=== PATIENT | female | born 1935 | race Caucasian/White ===

== ENCOUNTER 2018-01-27 15:32 | Inpatient (IN) | payer OTHER, MEDICARE ==
[~2018-01-27] VITALS: Ht 160 cm; Wt 62.2 kg
[~2018-01-27 15:32] MED LIST: ECOT81TA2
[2018-01-27 15:50] VITALS: BP 169/72; PULSE 74; RESP 16; TEMP 97.4; O2SAT 98
[2018-01-27] MEDS ORDERED: ONDANSETRON ODT 4 MG TAB PO ONE (17:30)
[2018-01-27] MEDS ORDERED: MORPHINE SULFATE 4 MG/ML INJ IV PUSH ONE (17:30)
--- NOTE | 2018-01-27 17:30 | PD ---
HPI . Hip injury Chief Complaint: Hip Injury Time Seen by Provider: 17:04 Travel History International Travel<30 days: No Contact w/Intl Traveler<30days: No Traveled to known affect area: No History of Present Illness HPI This patient was brought to us by private vehicle following a slip and fall in the rain. She landed on the right hip. She comes in complaining with pain in the right hip. The pain is severe. The pain is exacerbated by any type of movement. The injury occurred just prior to presentation. PFSH Past Medical History Arthritis: Yes Cardiovascular Problems: Yes High Cholesterol: Yes Coronary Artery Disease: Yes Diminished Hearing: No Gastrointestinal Disorders: Yes GERD: Yes Musculoskeletal: Yes Neurologic: No Respiratory: No Immunizations Current: Yes Past Surgical History Cardiac Surgery: Yes (cabg) Ear Surgery: No Endocrine Surgery: No Eye Surgery: No Gynecologic Surgery: Yes (hysterectomy) Hysterectomy: Yes Oral Surgery: No Thoracic Surgery: No Other Surgery: Yes Social History Alcohol Use: No Tobacco Use: No Substance Use: No Allergies-Medications (Allergen,Severity, Reaction): Coded Allergies: simvastatin (Unverified Allergy, Unknown, 03/23/17) shellfish derived (Unverified Adverse Reaction, Unknown, nausea/ vomiting , 03/23/17) Reported Meds & Prescriptions Reported Meds & Active Scripts Active Reported Ecotrin (Aspirin) 81 Mg Tabec Review of Systems Except as stated in HPI: all other systems reviewed are Neg Physical Exam Narrative GENERAL: Awake and alert. She was brought in by wheelchair. She had a great deal of difficulty with the transfer from the wheelchair to the bed. She has obvious pain in her right hip. SKIN: Warm and dry. Normal color and turgor. HEAD: Normocephalic/atraumatic. EYES: Pupils are equal. Extraocular movements are intact. NECK: Normal range of motion. Supple. CARDIOVASCULAR: Regular rate and rhythm. RESPIRATORY: Nonlabored respirations. Normal sats. MUSCULOSKELETAL: Right leg is shortened and externally rotated. She has normal distal pulses. NEUROLOGICAL: A and O 3. Nonfocal. PSYCHIATRIC: Appropriate mood and affect. Data Data Last Documented VS Vital Signs Date Time Temp Pulse Resp B/P (MAP) Pulse Ox O2 Delivery O2 Flow Rate FiO2 01/27/18 17:20 18 Room Air 01/27/18 15:50 97.4 74 169/72 (104) 98 Orders Orders ^ Saline Lock (01/27/18 17:21) Morphine Inj (Morphine Inj) (01/27/18 17:30) Ondansetron Odt (Zofran Odt) (01/27/18 17:30) Hip, Uni(Ap&Lat) W Ap Pelvis (01/27/18 17:21) Consult Orthopedic (01/27/18 ) Electrocardiogram (01/27/18 18:17) Complete Blood Count With Diff (01/27/18 18:17) Comprehensive Metabolic Panel (01/27/18 18:17) Prothrombin Time / Inr (Pt) (01/27/18 18:17) Act Partial Throm Time (Ptt) (01/27/18 18:17) Urinalysis - C+S If Indicated (01/27/18 18:17) Red Blood Cells (Rbc) (01/27/18 18:17) Chest, Single Ap (01/27/18 18:17) Iv Access Insert/Monitor (01/27/18 18:17) Oximetry (01/27/18 18:17) Ecg Monitoring (01/27/18 18:17) Sodium Chloride 0.9% Flush (Ns Flush) (01/27/18 18:30) Diet Npo (01/28/18 Breakfast) Type And Screen (01/27/18 18:17) Urinary Catheter Management ELOY.Q8H (01/27/18 18:21) (Hub Use Only)Inp Phy Cons/Ref (01/27/18 ) MDM Medical Decision Making Medical Screen Exam Complete: Yes Emergency Medical Condition: Yes Medical Record Reviewed: Yes (PMH of HL, CAD s/p CABG, RA and tob abuse) Differential Diagnosis Differential diagnosis of extremity trauma includes but is not limited to fracture, sprain or strain, dislocation, contusion Narrative Course This patient presents with right hip injury. She most likely has a hip fracture. An IV will be started and she will be given IV morphine for pain. X- ray is pending. Right hip x-ray shows an intertrochanteric fracture. I have subsequently ordered preop labs, EKG and chest x-ray. Once these are done, she will be admitted to the hospitalist with a consult to orthopedics. Diagnosis Primary Impression: Intertrochanteric fracture of right hip Qualified Codes: S72.141A - Displaced intertrochanteric fracture of right femur, initial encounter for closed fracture Admitting Information Admitting Physician Requests: Admit Condition: Stable Shikha Lennon MD Jan 27, 2018 17:30
[2018-01-27] MEDS ORDERED: SODIUM CHLORIDE 0.9% FLUSH 10 ML FLUSH IVF PRN (18:30)
--- NOTE | 2018-01-27 18:41 | RADRPT ---
EXAM DATE: 01/27/2018 6:38 PM EDT AGE/SEX: 82 years / Female INDICATIONS: Evaluate chest for trauma, fell CLINICAL DATA: This is the patient's initial encounter. Patient reports that signs and symptoms have been present for 1 day and indicates a pain score of 0/10. MEDICAL/SURGICAL HISTORY: Cardiovascular disease. CABG. COMPARISON: None. FINDINGS: A single AP view of the chest demonstrates the lungs to be symmetrically aerated without evidence of mass, infiltrate or effusion. The cardiomediastinal contours are unremarkable. Osseous structures a re intact. Median sternotomy wires. CONCLUSION: Negative examination. Electronically signed by: Herberth Joel MD 01/27/2018 6:40 PM EDT
--- NOTE | 2018-01-27 18:46 | RADRPT ---
EXAM DATE: 01/27/2018 6:14 PM EDT AGE/SEX: 82 years / Female INDICATIONS: Trauma to right hip due to fall. CLINICAL DATA: This is the patient's initial encounter. Patient reports that signs and symptoms have been present for 1 day and indicates a pain score of 10/10. MEDICAL/SURGICAL HISTORY: None. CABG. Cholecystectomy. Hysterectomy. COMPARISON: None. FINDINGS: Multiple views of the right hip reveal an acute comminuted intertrochanteric fracture. There is media l displacement of the lesser trochanter. Varus angulation at the fracture site. Femoral head remains in contact with the acetabulum. Remaining pelvis is intact. Atherosclerotic calcifications. CONCLUSION: Acute right intertrochanteric fracture as detailed above. Electronically signed by: Herberth Joel MD 01/27/2018 6:45 PM EDT
[2018-01-27 19:08] VITALS: BP 159/72; PULSE 81; RESP 18; O2SAT 96
[2018-01-27 19:12] VITALS: RESP 18; O2SAT 96
[2018-01-27 19:26] LABS: AUTOMATED NEUTROPHIL # 12.7 TH/MM3 (1.8-7.7); BASOPHIL % 0.3 % (0.0-2.0); EOSINOPHIL # 0.1 TH/MM3 (0-0.4); EOSINOPHIL % 0.5 % (0.0-4.0); HEMATOCRIT 47.7 % (35.0-46.0); HEMOGLOBIN 15.4 GM/DL (11.6-15.3); LYMPH % 11.3 % (9.0-44.0); LYMPHOCYTE # 1.8 TH/MM3 (1.0-4.8); MEAN CELL VOLUME 95.7 FL (80.0-100.0); MEAN CORPUSCULAR HEMOGLOBIN 30.9 PG (27.0-34.0); MEAN CORPUSCULAR HGB CONC 32.3 % (32.0-36.0); MEAN PLATELET VOLUME 8.9 FL (7.0-11.0); MONO % 6.9 % (0.0-8.0); MONOCYTE # 1.1 TH/MM3 (0-0.9); PLATELET COUNT 275 TH/MM3 (150-450); RED BLOOD COUNT 4.99 MIL/MM3 (4.00-5.30); RED CELL DISTRIBUTION WIDTH 13.3 % (11.6-17.2); WHITE BLOOD COUNT 15.6 TH/MM3 (4.0-11.0)
[2018-01-27 19:43] LABS: ALT (GPT) 31 U/L (10-53)
[2018-01-27 19:46] LABS: ALKALINE PHOSPHATASE 77 U/L (45-117); TOTAL BILIRUBIN ADULT 0.5 MG/DL (0.2-1.0); TOTAL PROTEIN 8.3 GM/DL (6.4-8.2)
[2018-01-27] MEDS ORDERED: ASPI-516 CHEW (19:56)
[2018-01-27] MEDS ORDERED: CALC1TAB87 PO (19:56)
[2018-01-27] MEDS ORDERED: ATOR40TA16 PO (19:56)
[2018-01-27] MEDS ORDERED: PRED2.5T PO (19:56)
[2018-01-27] MEDS ORDERED: FISHCAP4 PO (19:56)
[2018-01-27 19:58] LABS: INTERNATIONAL NORMALIZED RATIO 1.1 RATIO; PROTHROMBIN TIME - PATIENT 11.2 SEC (9.8-11.6)
[2018-01-27 20:09] LABS: AST (GOT) 41 U/L (15-37); BICARBONATE 21.9 MEQ/L (21.0-32.0); BLOOD UREA NITROGEN 18 MG/DL (7-18); CALCIUM 9.2 MG/DL (8.5-10.1); CHLORIDE 106 MEQ/L (98-107); CREATININE 0.92 MG/DL (0.50-1.00); GLOMERULAR FILTRATION RATE 59 ML/MIN (>89); GLUCOSE,RANDOM 209 MG/DL (74-106); SODIUM (NA) 140 MEQ/L (136-145)
[2018-01-27 20:09] LABS: BACTERIA, URINE MANY /hpf; BILIRUBIN, URINE NEG (NEG); BLOOD, URINE NEG (NEG); GLUCOSE,URINE 50 mg/dL (NEG); HYALINE CAST, URINE 10 /lpf (RARE); KETONE, URINE NEG (NEG); MUCUS URINE MANY /lpf (OCC); NITRITE,URINE POS (NEG); URINE COLOR YELLOW (YELLW/STRAW); URINE LEUKOCYTE ESTERASE SMALL (NEG)
[2018-01-27 20:12] VITALS: BP 136/61; PULSE 85; RESP 18; O2SAT 96
[2018-01-27] MEDS: MORPHINE SULFATE 4 MG/ML INJ IV PUSH PRN (20:31)
--- NOTE | 2018-01-27 20:40 | PD ---
Physical Exam Date Seen by Provider: Jan 27, 2018 Time Seen by Provider: 20:38 Narrative Patient signed out to me at shift change. Seen by prior attending x-ray was done that shows a inotropic fracture I was awaiting lab results before admission for orthopedic consult consult and surgery patient is a 15 white count count on her serum and on her urine she has nitrate positive urine multiple bacteria and a 24 white blood cells in her urine she is going to be treated with antibiotics by the inpatient attending Arie William discussed the findings and she said she will order antibiotics and she will consult Orth O patient will be n.p.o. at midnight admit to medical surgery floor Data Data Last Documented VS Vital Signs Date Time Temp Pulse Resp B/P (MAP) Pulse Ox O2 Delivery O2 Flow Rate FiO2 01/27/18 20:12 85 18 136/61 (86) 96 Room Air 01/27/18 15:50 97.4 Orders Orders ^ Saline Lock (01/27/18 17:21) Morphine Inj (Morphine Inj) (01/27/18 17:30) Ondansetron Odt (Zofran Odt) (01/27/18 17:30) Hip, Uni(Ap&Lat) W Ap Pelvis (01/27/18 17:21) Consult Orthopedic (01/27/18 ) Electrocardiogram (01/27/18 18:17) Complete Blood Count With Diff (01/27/18 18:17) Comprehensive Metabolic Panel (01/27/18 18:17) Prothrombin Time / Inr (Pt) (01/27/18 18:17) Act Partial Throm Time (Ptt) (01/27/18 18:17) Urinalysis - C+S If Indicated (01/27/18 18:17) Red Blood Cells (Rbc) (01/27/18 18:17) Chest, Single Ap (01/27/18 18:17) Iv Access Insert/Monitor (01/27/18 18:17) Oximetry (01/27/18 18:17) Ecg Monitoring (01/27/18 18:17) Sodium Chloride 0.9% Flush (Ns Flush) (01/27/18 18:30) Diet Npo (01/28/18 Breakfast) Type And Screen (01/27/18 18:17) Urinary Catheter Management ELOY.Q8H (01/27/18 18:21) (Hub Use Only)Inp Phy Cons/Ref (01/27/18 ) Urine Culture (01/27/18 19:03) Morphine Inj (Morphine Inj) (01/27/18 20:15) Admit Order (Ed Use Only) (01/27/18 20:25) Labs Laboratory Tests Test 01/27/18 18:50 01/27/18 19:03 White Blood Count 15.6 TH/MM3 Red Blood Count 4.99 MIL/MM3 Hemoglobin 15.4 GM/DL Hematocrit 47.7 % Mean Corpuscular Volume 95.7 FL Mean Corpuscular Hemoglobin 30.9 PG Mean Corpuscular Hemoglobin Concent 32.3 % Red Cell Distribution Width 13.3 % Platelet Count 275 TH/MM3 Mean Platelet Volume 8.9 FL Neutrophils (%) (Auto) 81.0 % Lymphocytes (%) (Auto) 11.3 % Monocytes (%) (Auto) 6.9 % Eosinophils (%) (Auto) 0.5 % Basophils (%) (Auto) 0.3 % Neutrophils # (Auto) 12.7 TH/MM3 Lymphocytes # (Auto) 1.8 TH/MM3 Monocytes # (Auto) 1.1 TH/MM3 Eosinophils # (Auto) 0.1 TH/MM3 Basophils # (Auto) 0.0 TH/MM3 CBC Comment DIFF FINAL Differential Comment Prothrombin Time 11.2 SEC Prothromb Time International Ratio 1.1 RATIO Activated Partial Thromboplast Time 25.5 SEC Blood Urea Nitrogen 18 MG/DL Creatinine 0.92 MG/DL Random Glucose 209 MG/DL Total Protein 8.3 GM/DL Albumin 4.0 GM/DL Calcium Level 9.2 MG/DL Alkaline Phosphatase 77 U/L Aspartate Amino Transf (AST/SGOT) 41 U/L Alanine Aminotransferase (ALT/SGPT) 31 U/L Total Bilirubin 0.5 MG/DL Sodium Level 140 MEQ/L Potassium Level 4.5 MEQ/L Chloride Level 106 MEQ/L Carbon Dioxide Level 21.9 MEQ/L Anion Gap 12 MEQ/L Estimat Glomerular Filtration Rate 59 ML/MIN Urine Color YELLOW Urine Turbidity CLOUDY Urine pH 5.0 Urine Specific [place] 1.020 Urine Protein NEG mg/dL Urine Glucose (UA) 50 mg/dL Urine Ketones NEG mg/dL Urine Occult Blood NEG Urine Nitrite POS Urine Bilirubin NEG Urine Urobilinogen LESS THAN 2 mg/dL Urine Leukocyte Esterase SMALL Urine RBC 4 /hpf Urine WBC 24 /hpf Urine Bacteria MANY /hpf Urine Hyaline Casts 10 /lpf Urine Mucus MANY /lpf Microscopic Urinalysis Comment CATH-CULTURE IND MDM Medical Record Reviewed: Yes Supervised Visit with KEO: No Diagnosis Primary Impression: Intertrochanteric fracture of right hip Qualified Codes: S72.141A - Displaced intertrochanteric fracture of right femur, initial encounter for closed fracture Additional Impression: UTI (urinary tract infection) Condition: Stable Dong Larry MD Jan 27, 2018 20:40
[2018-01-27] MEDS ORDERED: BISACODYL 10 MG SUPP RECTAL PRN (21:00)
[2018-01-27] MEDS ORDERED: NALOXONE HCL 0.4 MG/ML AMP IV PUSH PRN (21:00)
[2018-01-27] MEDS ORDERED: ONDANSETRON ODT 4 MG TAB PO PRN (21:00)
[2018-01-27] MEDS ORDERED: SODIUM CHLORIDE 0.9% FLUSH 10 ML FLUSH IV FLUSH PRN (21:00)
[2018-01-27] MEDS ORDERED: MORPHINE SULFATE 4 MG/ML INJ IV PUSH PRN (21:00)
[2018-01-27] MEDS ORDERED: ACETAMINOPHEN 325 MG TAB PO PRN (21:00)
[2018-01-27] MEDS ORDERED: SENNOSIDES 8.6 MG TAB PO PRN (21:00)
[2018-01-27 21:38] VITALS: BP 172/74; PULSE 88; RESP 18; TEMP 98; O2SAT 96
--- NOTE | 2018-01-27 22:12 | HHI.HP ---
[facility] Admission Diagnosis hip fracture Diagnoses: Chief Complaint: Right hip pain Travel History International Travel<30 Days: No Contact w/Intl Traveler <30 Da: No Traveled to Known Affected Are: No History of Present Illness 82-year-old female with a history of CAD, hyperlipidemia, rheumatoid arthritis and GERD presented to the ED with complaints of right hip pain. Patient states she was running through the rain to catch the soccer game on TV when she came across some steps slipped going up the stairs. She states she really landed on her right hip, denies hitting her head or any LOC. She states the pain is a throbbing, constant, 8/10 to the right hip with no radiation or associated symptoms. She denies any chest pain, shortness of breath, fevers or chills. Review of Systems Except as stated in HPI: all other systems reviewed are Neg Past Family Social History Past Medical History CAD Hyperlipidemia Rheumatoid arthritis GERD Past Surgical History CABG Hysterectomy Cholecystectomy Reported Medications Reported Meds & Active Scripts Active Reported Fish Oil + D3 (Fish Oil-Cholecalciferol) 1,200-1,000 Mg-Unit Cap 1 Cap PO DAILY Calcium 600 with Vitamin D (Calcium Carbonate-Cholecalciferol) 600-400 mg-Unit Tab 1 Tab PO DAILY Aspirin 81 Mg Chew 81 Mg CHEW DAILY Atorvastatin (Atorvastatin Calcium) 40 Mg Tab 40 Mg PO DAILY Prednisone 2.5 Mg Tab 2.5 Mg PO DAILY Allergies: Coded Allergies: simvastatin (Unverified Allergy, Unknown, 03/23/17) shellfish derived (Unverified Adverse Reaction, Unknown, nausea/ vomiting , 03/23/17) Active Ordered Medications Current Medications Medications (Trade) Dose Ordered Sig/Stefan Route Start Time Stop Time Status Last Admin (NS Flush) 2 ml UNSCH PRN IVF 01/27/18 18:30 (Morphine Inj) 4 mg Q3H PRN IV PUSH 01/27/18 20:15 01/27/18 20:31 Sodium Chloride 1,000 ml @ 75 mls/hr [id number] IV 01/27/18 20:54 (NS Flush) 2 ml UNSCH PRN IV FLUSH 01/27/18 21:00 (NS Flush) 2 ml BID IV FLUSH 01/27/18 21:00 (Tylenol) 650 mg Q4H PRN PO 01/27/18 21:00 (Zofran Odt) 4 mg Q6H PRN PO 01/27/18 21:00 (Narcan Inj) 0.4 mg UNSCH PRN IV PUSH 01/27/18 21:00 (Lori-Colace) 1 tab BID PO 01/27/18 21:00 (Milk Of Magnesia Liq) 30 ml Q12H PRN PO 01/27/18 21:00 (Senokot) 17.2 mg Q12H PRN PO 01/27/18 21:00 (Dulcolax Supp) 10 mg DAILY PRN RECTAL 01/27/18 21:00 (Lactulose Liq) 30 ml DAILY PRN PO 01/27/18 21:00 (Morphine Inj) 4 mg Q3H PRN IV PUSH 01/27/18 21:00 (Lipitor) 40 mg HS PO 01/27/18 21:00 (Deltasone) 2.5 mg DAILY PO 01/28/18 09:00 Family History Patient denies any family history, no heart disease or cancer Social History Tobacco use: Quit 14 years ago Alcohol use: Denies Physical Exam Vital Signs Vital Signs Date Time Temp Pulse Resp B/P (MAP) Pulse Ox O2 Delivery O2 Flow Rate FiO2 01/27/18 21:38 98.0 88 18 172/74 (106) 96 01/27/18 21:38 01/27/18 20:37 18 01/27/18 20:12 85 18 136/61 (86) 96 Room Air 01/27/18 19:12 18 96 Room Air 01/27/18 19:08 81 18 159/72 (101) 96 Room Air 01/27/18 19:00 18 01/27/18 17:20 18 Room Air 01/27/18 15:50 97.4 74 16 169/72 (104) 98 Physical Exam GENERAL: This is a well-nourished, well-developed patient, in no apparent distress. SKIN: No rashes, ecchymoses or lesions. Cool and dry. HEAD: Atraumatic. Normocephalic. No temporal or scalp tenderness. EYES: Pupils equal round and reactive. Extraocular motions intact. CARDIOVASCULAR: Regular rate and rhythm without murmurs, gallops, or rubs. RESPIRATORY: Clear to auscultation. Breath sounds equal bilaterally. No wheezes , rales, or rhonchi. GASTROINTESTINAL: Abdomen soft, non-tender, nondistended. MUSCULOSKELETAL: Right hip edema and tenderness NEUROLOGICAL: Awake and alert. Normal speech. Laboratory Laboratory Tests Test 01/27/18 18:50 01/27/18 19:03 White Blood Count 15.6 Red Blood Count 4.99 Hemoglobin 15.4 Hematocrit 47.7 Mean Corpuscular Volume 95.7 Mean Corpuscular Hemoglobin 30.9 Mean Corpuscular Hemoglobin Concent 32.3 Red Cell Distribution Width 13.3 Platelet Count 275 Mean Platelet Volume 8.9 Neutrophils (%) (Auto) 81.0 Lymphocytes (%) (Auto) 11.3 Monocytes (%) (Auto) 6.9 Eosinophils (%) (Auto) 0.5 Basophils (%) (Auto) 0.3 Neutrophils # (Auto) 12.7 Lymphocytes # (Auto) 1.8 Monocytes # (Auto) 1.1 Eosinophils # (Auto) 0.1 Basophils # (Auto) 0.0 CBC Comment DIFF FINAL Differential Comment Prothrombin Time 11.2 Prothromb Time International Ratio 1.1 Activated Partial Thromboplast Time 25.5 Blood Urea Nitrogen 18 Creatinine 0.92 Random Glucose 209 Total Protein 8.3 Albumin 4.0 Calcium Level 9.2 Alkaline Phosphatase 77 Aspartate Amino Transf (AST/SGOT) 41 Alanine Aminotransferase (ALT/SGPT) 31 Total Bilirubin 0.5 Sodium Level 140 Potassium Level 4.5 Chloride Level 106 Carbon Dioxide Level 21.9 Anion Gap 12 Estimat Glomerular Filtration Rate 59 Urine Color YELLOW Urine Turbidity CLOUDY Urine pH 5.0 Urine Specific [place] 1.020 Urine Protein NEG Urine Glucose (UA) 50 Urine Ketones NEG Urine Occult Blood NEG Urine Nitrite POS Urine Bilirubin NEG Urine Urobilinogen LESS THAN 2 Urine Leukocyte Esterase SMALL Urine RBC 4 Urine WBC 24 Urine Bacteria MANY Urine Hyaline Casts 10 Urine Mucus MANY Microscopic Urinalysis Comment CATH-CULTURE IND Date/Time Source Procedure Growth Status 01/27/18 19:03 Urine Catheterized Urine Urine Culture Pending Received Result Diagram: 01/27/18 1850 01/27/18 185 Imaging Last Impressions Chest X-Ray 01/27/18 1817 Signed Impressions: CONCLUSION: Negative examination. Hip and Pelvis X-Ray 01/27/18 1721 Signed Impressions: CONCLUSION: Acute right intertrochanteric fracture as detailed above. Caprini VTE Risk Assessment Caprini VTE Risk Assessment: No/Low Risk (score <= 1) Caprini Risk Assessment Model Point Value = 1 Point Value = 2 Point Value = 3 Point Value = 5 Age 41-60 Minor surgery BMI > 25 kg/m2 Swollen legs Varicose veins or History of unexplained or recurrent spontaneous Oral contraceptives or hormone replacement Sepsis (< 1 month) Serious lung disease, including pneumonia (< 1 month) Abnormal pulmonary function Acute myocardial infarction Congestive heart failure (< 1 month) History of inflammatory bowel disease Medical patient at bed rest Age 61-74 Arthroscopic surgery Major open surgery (> 45 min) Laparoscopic surgery (> 45 min) Malignancy Confined to bed (> 72 hours) Immobilizing plaster cast Central venous access Age >= 75 History of VTE Family history of VTE Factor V Leiden Prothrombin [id number] Lupus anticoagulant Anticardiolipin antibodies Elevated serum homocysteine Heparin-induced thrombocytopenia Other congenital or acquired thrombophilia Stroke (< 1 month) Elective arthroplasty Hip, pelvis, or leg fracture Acute spinal cord injury (< 1 month) Prophylaxis Regimen Total Risk Factor Score Risk Level Prophylaxis Regimen 0-1 Low Early ambulation 2 Moderate Order ONE of the following: *Sequential Compression Device (SCD) *Heparin 5000 units SQ BID 3-4 Higher Order ONE of the following medications: *Heparin 5000 units SQ TID *Enoxaparin/Lovenox 40 mg SQ daily (WT < 150 kg, CrCl > 30 mL/min) *Enoxaparin/Lovenox 30 mg SQ daily (WT < 150 kg, CrCl > 10-29 mL/min) *Enoxaparin/Lovenox 30 mg SQ BID (WT < 150 kg, CrCl > 30 mL/min) AND/OR *Sequential Compression Device (SCD) 5 or more Highest Order ONE of the following medications: *Heparin 5000 units SQ TID (Preferred with Epidurals) *Enoxaparin/Lovenox 40 mg SQ daily (WT < 150 kg, CrCl > 30 mL/min) *Enoxaparin/Lovenox 30 mg SQ daily (WT < 150 kg, CrCl > 10-29 mL/min) *Enoxaparin/Lovenox 30 mg SQ BID (WT < 150 kg, CrCl > 30 mL/min) AND *Sequential Compression Device (SCD) Assessment and Plan Assessment and Plan 82-year-old female with a history of CAD, hyperlipidemia, rheumatoid arthritis and GERD presented to the ED with complaints of right hip pain. Hip Fracture, right Hip x ray reviewed and shows a right intertrochanteric fracture -Consult orthopedics -Pain management with IV Morphine -NPO, IVF for hydration HLD, chronic -Resume home medications -Heart healthy diet when no longer n.p.o. Rheumatoid arthritis -Resume home prednisone DVT prophylaxis: SCDs on nonaffected leg Discussed Condition With Patient and RN Physician Certification 2 Midnight Certification Type: Admission for Inpatient Services Order for Inpatient Services The services are ordered in accordance with Medicare regulations or non- Medicare payer requirements, as applicable. In the case of services not specified as inpatient-only, they are appropriately provided as inpatient services in accordance with the 2-midnight benchmark. Estimated LOS (days): 2 days is the estimated time the patient will need to remain in the hospital, assuming treatment plan goals are met and no additional complications. Post-Hospital Plan: Home Cari Ron Jan 27, 2018 22:12
[2018-01-27] MEDS: ATORVASTATIN 40 MG TAB PO SCH ×2 (22:17→22:18)
[2018-01-27] MEDS: SODIUM CHLOR 0.9% 1000 ML INJ 1,000 ML IV SCH (22:17)
[2018-01-27] MEDS: SODIUM CHLORIDE 0.9% FLUSH 10 ML FLUSH IV FLUSH SCH (22:17)
[2018-01-27] MEDS: DOCUSATE SODIUM 50 MG/SENNA 8.6 MG TAB PO SCH (22:17)
[2018-01-28 00:01] VITALS: BP 126/59; PULSE 77; RESP 17; TEMP 97.8; O2SAT 96
[2018-01-28] MEDS: MORPHINE SULFATE 4 MG/ML INJ IV PUSH PRN ×3 (00:14→06:49)
[2018-01-28] MEDS ORDERED: POVIDONE IODINE 5% (ANTISEPSIS KIT) 4 APPLICATIONS EACH NARE PRN (01:15)
[2018-01-28] MEDS ORDERED: SODIUM CHLORID 0.9% 500 ML IV PRN (01:15)
[2018-01-28] MEDS ORDERED: LACTATED RINGER'S 1000 ML IV PRN (01:15)
[2018-01-28] MEDS ORDERED: CHLORHEXIDINE GLUCONATE 2 % 1 PACK (2 CLOTHS) TOPICAL PRN (01:15)
[2018-01-28] MEDS ORDERED: METOPROLOL TARTRATE 25 MG TAB PO PRN (01:15)
[2018-01-28 03:31] LABS: AUTOMATED NEUTROPHIL # 8.2 TH/MM3 (1.8-7.7); BASOPHIL % 0.4 % (0.0-2.0); EOSINOPHIL # 0.2 TH/MM3 (0-0.4); EOSINOPHIL % 1.3 % (0.0-4.0); HEMATOCRIT 36.6 % (35.0-46.0); HEMOGLOBIN 12.3 GM/DL (11.6-15.3); LYMPH % 19.2 % (9.0-44.0); LYMPHOCYTE # 2.3 TH/MM3 (1.0-4.8); MEAN CELL VOLUME 95.5 FL (80.0-100.0); MEAN CORPUSCULAR HGB CONC 33.5 % (32.0-36.0); MEAN PLATELET VOLUME 8.3 FL (7.0-11.0); MONO % 9.6 % (0.0-8.0); MONOCYTE # 1.1 TH/MM3 (0-0.9); NEUT % 69.5 % (16.0-70.0); PLATELET COUNT 236 TH/MM3 (150-450); RED BLOOD COUNT 3.83 MIL/MM3 (4.00-5.30); RED CELL DISTRIBUTION WIDTH 12.9 % (11.6-17.2); WHITE BLOOD COUNT 11.8 TH/MM3 (4.0-11.0)
[2018-01-28 04:00] VITALS: BP 125/59; PULSE 81; RESP 17; TEMP 98.3; O2SAT 93
[2018-01-28 04:00] LABS: BICARBONATE 26.6 MEQ/L (21.0-32.0); CALCIUM 8.1 MG/DL (8.5-10.1); CREATININE 0.66 MG/DL (0.50-1.00)
--- NOTE | 2018-01-28 06:40 | PD.ORT.PN ---
Subjective Subjective Remarks s/p right hip fx after fall in rain right hip pain. no other complaints. Objective Vitals Vital Signs Date Time Temp Pulse Resp B/P (MAP) Pulse Ox O2 Delivery O2 Flow Rate FiO2 01/28/18 04:00 98.3 81 17 125/59 (81) 93 01/28/18 00:01 97.8 77 17 126/59 (81) 96 01/27/18 21:38 98.0 88 18 172/74 (106) 96 01/27/18 21:38 01/27/18 20:37 18 01/27/18 20:12 85 18 136/61 (86) 96 Room Air 01/27/18 19:12 18 96 Room Air 01/27/18 19:08 81 18 159/72 (101) 96 Room Air 01/27/18 19:00 18 01/27/18 17:20 18 Room Air 01/27/18 15:50 97.4 74 16 169/72 (104) 98 I/O 01/27/18 01/27/18 01/27/18 01/28/18 01/28/18 01/28/18 07:00 15:00 23:00 07:00 15:00 23:00 Output Total 500 ml Balance -500 ml Output Urine Total 500 ml Result Diagram: 01/28/18 0257 01/28/18 0257 Other Results Laboratory Tests Test 01/27/18 18:50 Prothromb Time International Ratio 1.1 RATIO Prothrombin Time 11.2 SEC (9.8-11.6) Imaging Last 24 hours Impressions Chest X-Ray 01/27/18 1817 Signed Impressions: CONCLUSION: Negative examination. Hip and Pelvis X-Ray 01/27/18 1721 Signed Impressions: CONCLUSION: Acute right intertrochanteric fracture as detailed above. Objective Remarks RLE: leg externally rotated. pain with movement. nvi Assessment & Plan Assessment and Plan 1) right Intertroch Fx -npo -consents -surgery today with Vern Oleary/First Karoline TAYLOR Jan 28, 2018 06:39
--- NOTE | 2018-01-28 07:55 | MB ---
cc: Kael Grant MD DATE: 01/28/2018 REASON FOR CONSULTATION: Right hip intertrochanteric fracture. CONSULTING PHYSICIAN: Dr. Toña Barger HISTORY OF PRESENT ILLNESS: Willow is an 82-year-old female who was running because of rain. She missed a step. She landed on her right hip. She had immediate right hip pain. She was unable to stand or ambulate. Her friends helped get her into a private vehicle. She was brought to the emergency room. X-rays revealed a right hip intertrochanteric fracture. She denies dizziness, syncope, or loss of consciousness. She describes a mechanical fall. Her only complaint is her right hip pain and mild right hand pain. The pain is worse with movement and is improved with rest. PAST MEDICAL HISTORY: Illnesses: Coronary artery disease, high cholesterol, rheumatoid arthritis and reflux. PAST SURGICAL HISTORY: Coronary artery bypass, hysterectomy, cholecystectomy. MEDICATIONS: 1. Fish oil. 2. Calcium. 3. Aspirin. 4. Atorvastatin. 5. Prednisone. ALLERGIES: SIMVASTATIN AND SHELLFISH. FAMILY HISTORY: Noncontributory. She denies any familial problems with anesthesia. SOCIAL HISTORY: The patient denies alcohol or drug use. She quit smoking 14 years ago. REVIEW OF SYSTEMS: The patient denies headaches, fevers, chills, weight loss, vision changes, hearing loss, chest pain, palpitations, shortness of breath, nausea, vomiting, urinary or bowel changes, neck or back pain, skin rashes, weakness or numbness of extremities or depression. She complains of severe right hip pain and mild right hand pain. The pain is worse with movement. LABORATORY DATA: The patient has a white blood cell count of 11.8, hematocrit of 36.6, platelet count 236. INR 1.1. Potassium 4.2 and creatinine 0.66. PHYSICAL EXAMINATION: GENERAL: The patient is a pleasant 82-year-old female. She is awake and alert. She is in no acute distress. She appears well-developed and well-nourished. VITAL SIGNS: Temperature 98.3, pulse 81, respirations 17, blood pressure 125/59, O2 saturations 93% on room air. HEAD: The patient is normocephalic. EYES: Pupils are equal. NECK: Soft, nontender. The trachea is in the midline. ABDOMEN: Soft, nontender, nondistended. EXTREMITIES: Examination of the right upper extremity reveals no pain with shoulder, elbow or wrist motion. She has a small bruise on the dorsum of her hand. She is able to flex and extend her fingers. Sensation is intact in all fingers. Radial pulse is palpable. Skin is intact. Examination of left arm reveals no pain with shoulder, elbow or wrist motion. She has intact sensation in all fingers. She has good capillary refill in all fingers. Biomass Plant Manager strength is +5. Radial pulse is palpable. Skin is intact. Examination of the left leg reveals no pain with hip, knee or ankle motion. Skin is intact. Dorsalis pedis pulses palpable. Sensation is intact. Examination of right leg reveals the right leg is shortened and externally rotated. She has pain with any hip motion. Skin is intact. Thigh and calf compartments are soft. She has no specific tenderness around her knee, tibia or ankle. Dorsalis pedis pulse is palpable. X-RAYS: X-rays of the right hip were reviewed. X-rays revealed a displaced 3-part intertrochanteric hip fracture. IMPRESSION: 1. 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 2. Coronary artery disease. 3. Rheumatoid arthritis. 4. Reflux. PLAN: Treatment options were discussed with the patient. At this point, I would recommend surgical intervention. I would recommend reduction of right hip with intramedullary nail fixation. Risks of surgery include bleeding, infection, injury to arteries, nerves or blood vessels, nonunion, malunion, painful hardware, as well as medical complications including blood clot, stroke, heart attack and . All questions were answered. I will plan on surgery today. I also checked patient's vitamin D level. She will be started on calcium and vitamin D supplementation. Physical therapy will be consulted postoperatively. She will be placed on appropriate DVT prophylaxis. A mid-level provider in my office, nurse practitioner or PA, may see this patient on a follow-up basis and continue to implement the objective of this plan including: Starting or adjusting medications, injections of muscle, tendon, bursa or joints, cast application, orthotic or brace application, physical therapy, further radiographic studies including x-ray, MRI, CT, ultrasounds or bone scan, vascular studies, neurologic studies, or other specialist consultations, and proceeding with surgical management as appropriate. MD ISABEL Forbes/SHERRIE , 07:31 AM , 07:53 AM
[2018-01-28 08:00] VITALS: BP 136/60; PULSE 84; RESP 18; TEMP 97.8; O2SAT 90
[2018-01-28] MEDS: SODIUM CHLORIDE 0.9% FLUSH 10 ML FLUSH IV FLUSH SCH ×2 (08:40→20:43)
[2018-01-28] MEDS: DOCUSATE SODIUM 50 MG/SENNA 8.6 MG TAB PO SCH ×2 (08:40→20:41)
[2018-01-28] MEDS: predniSONE 5 MG TAB PO SCH (08:40)
[2018-01-28] MEDS ORDERED: VANCOMYCIN HCL 1000 MG VIAL ONE (09:12)
[2018-01-28] MEDS ORDERED: BUPIVACAINE/EPINEPHRINE 0.25% PF 10 ML VIAL ONE (09:12)
[2018-01-28] MEDS ORDERED: GENTAMICIN SULFATE 80 MG/2 ML VIAL ONE (09:12)
[2018-01-28] MEDS ORDERED: SODIUM CHLOR 0.9% 250 ML INJ 250 ML ONE (09:12)
[2018-01-28] MEDS ORDERED: ceFAZolin INJ 1,000 MG VIAL ONE (09:12)
--- NOTE | 2018-01-28 09:21 | HHI.PR ---
Subjective Remarks Patient complaint of right hip pain. Ready for surgery today. Objective Vitals Vital Signs Date Time Temp Pulse Resp B/P (MAP) Pulse Ox O2 Delivery O2 Flow Rate FiO2 01/28/18 08:00 97.8 84 18 136/60 (85) 90 01/28/18 04:00 98.3 81 17 125/59 (81) 93 01/28/18 00:01 97.8 77 17 126/59 (81) 96 01/27/18 21:38 98.0 88 18 172/74 (106) 96 01/27/18 21:38 01/27/18 20:37 18 01/27/18 20:12 85 18 136/61 (86) 96 Room Air 01/27/18 19:12 18 96 Room Air 01/27/18 19:08 81 18 159/72 (101) 96 Room Air 01/27/18 19:00 18 01/27/18 17:20 18 Room Air 01/27/18 15:50 97.4 74 16 169/72 (104) 98 I/O 01/27/18 01/27/18 01/27/18 01/28/18 01/28/18 01/28/18 07:00 15:00 23:00 07:00 15:00 23:00 Output Total 500 ml Balance -500 ml Output Urine Total 500 ml Result Diagram: 01/28/187 01/28/18 025 Objective Remarks GENERAL: This is a well-nourished, well-developed patient, in no apparent distress. CARDIOVASCULAR: Regular rate and rhythm RESPIRATORY: Clear to auscultation. Breath sounds equal bilaterally. No wheezes , rales, or rhonchi. MUSCULOSKELETAL: Extremities without clubbing, cyanosis, or edema. NEURO: Alert & Oriented x 3 to person, place, time A/P Assessment and Plan 82-year-old female with a history of CAD, hyperlipidemia, rheumatoid arthritis and GERD presented to the ED with complaints of right hip pain. 1. Hip Fracture, right Hip x ray revealed a right intertrochanteric fracture For surgical intervention with Dr. Grant today -Pain management with IV Morphine -NPO, IVF for hydration 2. Hyperlipidemia, chronic -Resume home medications statin 3. Rheumatoid arthritis -Resume home prednisone 4. DVT prophylaxis: SCDs on nonaffected leg, start anticoagulation per orthopedics after surgery Discharge Planning Per clinical course likely will need retirement facility Toña Barger MD Jan 28, 2018 09:21
[2018-01-28] MEDS ORDERED: HYDR-3580 PO (09:53)
[2018-01-28] MEDS ORDERED: WALKER WHEELS/F1 MIS (09:53)
[2018-01-28] MEDS ORDERED: XARE10TA PO (09:53)
[2018-01-28] MEDS ORDERED: VITA500012 PO (09:53)
[2018-01-28] MEDS ORDERED: CALCTAB19 PO (09:53)
[2018-01-28] MEDS ORDERED: ACETAMINOPHEN 1000 MG/100 ML 100 ML IV ONE (10:15)
[2018-01-28] MEDS ORDERED: methylPREDNISolone SOD SUCC 125 MG/2 ML VIAL ONE (10:16)
--- NOTE | 2018-01-28 11:26 | PD.OP ---
cc: Kael Meier MD Operative Report Date of Surgery: Jan 28, 2018 Preoperative Diagnosis: Right hip intertrochanteric fracture Postoperative Diagnosis: Procedure: Right hip reduction and intramedullary fixation Anesthesia: General Surgeon: Kael Meier Commercial Or Institutional Cleaner(s): COREY Li PA-C The surgical procedure was assisted by my physician registered dental assistant rda. My P.A. presence was necessary throughout this case for the manipulation and positioning of the surgical extremity. My P.A. was assisting me throughout the duration of this procedure. The skill set of a physician registered dental assistant rda was medically necessary to complete this procedure. During the surgical case the neurosurgical physician assistant was working at the back table and the physician registered dental assistant rda was directly assisting me. Operation and Findings: Implants used: Biomet 11 mm x [380]mm troch nail Plan of activity: Weight-bear as tolerated Patient was seen and evaluated preoperatively. The patient has significant hip pain from proximal femur fracture. The risk and benefits of surgery were discussed in depth with the patient to include bleeding, infection, nonunion, malunion, need for hip replacement, painful hardware, as well as medical competitions including blood clots, stroke, heart attack, and . Informed consent was obtained. Operative site was marked. Patient was brought to the operating room and placed on fracture table. IV sedation was administered by anesthesiologist. Timeout procedure was performed. Hip and leg were prepped with alcohol followed by DuraPrep and draped in the usual sterile fashion. IV antibiotics were given prior to incision. Procedure began with reduction of fracture. Traction was applied. The leg was manipulated to achieve reduction. Excellent reduction was achieved. Fluoroscopy was used to confirm reduction. A three inch incision was made proximal to the trochanter. Subcutaneous tissue was dissected bluntly. Guidepin was placed at the tip of the trochanter and advanced into the femoral canal. Fluoroscopy confirmed appropriate guidepin placement. A opening reamer was placed over the guidepin. A long ball tipped guide pin was now placed down the femoral canal into the center of the distal femur. The nail length was now measured. Fluoroscopy confirmed appropriate guidepin placement. Flexible reamers were now passed over the guidepin to ream the intramedullary canal. The nail was attached to the insertion handle. Nail was now placed over the guidepin into the femoral canal. Fluoroscopy confirmed appropriate nail placement. A second incision was made over the lateral thigh. Cannulas were placed through the insertion handle down to the femur. Guidepin was now placed through the femoral nail into the center of the femoral head. Fluoroscopy confirmed appropriate guidepin placement. Screw length was measured. Cannulated drill was placed over the guidepin. Appropriate length lag screw was now placed. Traction was released and compression was applied. The set screw was now tightened in dynamic mode. Next, using perfect [place] technique 1 distal interlocking screw was placed. Screw holes were predrilled and screw lengths were measured. Final fluoroscopy revealed well aligned fracture with well-placed hardware. Incision was closed with 3-0 Vicryl and adriana. Sterile dressings were applied. Patient was awakened and transferred to recovery room. Kael Meier MD Jan 28, 2018 11:26
[2018-01-28] MEDS ORDERED: MORPHINE SULFATE 4 MG/ML INJ IV PUSH PRN (11:30)
[2018-01-28] MEDS ORDERED: diphenhydrAMINE HCL 25 MG CAP PO PRN (11:30)
[2018-01-28] MEDS ORDERED: DO NOT ADM ANY ANTICOAGULANT DRUGS PRN (11:37)
[2018-01-28] MEDS: SODIUM CHLOR 0.9% 1000 ML INJ 1,000 ML IV SCH (11:53)
[2018-01-28 12:00] VITALS: BP 131/59; PULSE 77; RESP 18; TEMP 97.8; O2SAT 90
[2018-01-28] MEDS ORDERED: PROPOFOL 200 MG/20 ML AMP IV ONE (12:00)
[2018-01-28] MEDS ORDERED: ePHEDrine/NS 25 MG/5 ML SYRINGE IV ONE (12:00)
[2018-01-28] MEDS ORDERED: DEXAMETHASONE SOD PHOS 4 MG/ML VIAL IV ONE (12:00)
[2018-01-28] MEDS ORDERED: LIDOCAINE HCL 1% PF 5 ML SYRINGE OTHER ONE (12:00)
[2018-01-28] MEDS ORDERED: ONDANSETRON HCL 4 MG/2 ML VIAL IV PUSH ONE (12:00)
--- NOTE | 2018-01-28 12:45 | EKG ---
Date Performed: 01/27/2018 Time Performed: 19:22:22 PTAGE: 82 years EKG: Sinus rhythm NORMAL ECG Since the PREVIOUS TRACING , no significant change noted PREVIOUS TRACIN04/21/2007 03.43 DOCTOR: Spencer Espana Interpretating Date/Time 01/28/2018 12:42:07
--- NOTE | 2018-01-28 12:47 | RADRPT ---
EXAM DATE: 01/28/2018 11:54 AM EDT AGE/SEX: 82 years / Female INDICATIONS: Intertrochanteric nail placement. CLINICAL DATA: This is the patient's initial encounter. Patient reports that signs and symptoms have been present for 1 day and indicates a pain score of Nonresponsive. MEDICAL/SURGICAL HISTORY: Non-responsive. Non-responsive. COMPARISON: No prior exams available for comparison. FINDINGS: The examination demonstrates intramedullary marlee placement within the right femur. There is a trochant jovita nail across the patient's fracture. The alignment is excellent. CONCLUSION: Excellent alignment of the patient's fracture post intramedullary marlee and trochanteric nail placement . Electronically signed by: Jose Guadalupe Frias MD 01/28/2018 12:46 PM EDT
[2018-01-28] MEDS: CALCIUM/VITAMIN D 250 MG/125 U TAB PO SCH ×2 (13:00→17:41)
[2018-01-28] MEDS ORDERED: ERGOCALCIFEROL (VIT D2) 50,000 UNIT CAP PO ONE (13:30)
[2018-01-28 16:00] VITALS: BP 113/58; PULSE 76; RESP 16; TEMP 97.9; O2SAT 94
[2018-01-28] MEDS: ACETAMINOPHEN/HYDROcodone 325 MG/7.5 MG TAB PO PRN ×2 (16:08→20:42)
[2018-01-28 20:00] VITALS: BP 164/69; PULSE 79; RESP 18; TEMP 97.7; O2SAT 91
[2018-01-28] MEDS: ATORVASTATIN 40 MG TAB PO SCH (20:41)
[2018-01-29] VITALS: BP 116/59; PULSE 72; RESP 20; TEMP 97.8; O2SAT 94
[2018-01-29] MEDS: SODIUM CHLOR 0.9% 1000 ML INJ 1,000 ML IV SCH ×2 (00:05→12:54)
[2018-01-29] MEDS: ACETAMINOPHEN/HYDROcodone 325 MG/7.5 MG TAB PO PRN ×5 (00:05→18:20)
[2018-01-29 04:00] VITALS: BP 127/63; PULSE 71; RESP 18; TEMP 97.3; O2SAT 93
[2018-01-29 06:23] LABS: HEMATOCRIT 31.8 % (35.0-46.0); HEMOGLOBIN 10.5 GM/DL (11.6-15.3)
[2018-01-29 08:00] VITALS: BP 122/56; PULSE 69; RESP 20; TEMP 97.5; O2SAT 92
[2018-01-29] MEDS: CALCIUM/VITAMIN D 250 MG/125 U TAB PO SCH ×3 (10:38→18:00)
[2018-01-29] MEDS: DOCUSATE SODIUM 50 MG/SENNA 8.6 MG TAB PO SCH ×2 (10:38→20:31)
[2018-01-29] MEDS: CHOLECALCIFEROL (VIT D3) 5000 UNIT CAP PO SCH (10:38)
[2018-01-29] MEDS: predniSONE 5 MG TAB PO SCH (10:38)
[2018-01-29] MEDS: SODIUM CHLORIDE 0.9% FLUSH 10 ML FLUSH IV FLUSH SCH ×2 (10:40→20:31)
[2018-01-29] MEDS: ENOXAPARIN SODIUM 30 MG/0.3 ML SYRINGE SQ SCH (10:40)
--- NOTE | 2018-01-29 11:49 | PD.ORT.PN ---
Subjective Post Op Day #: 1 Subjective Remarks Patient is OOB in chair with mild to moderate right hip pain. Patient has been ambulatory with PT. Patient requesting SNF in [place] Objective Vitals Vital Signs Date Time Temp Pulse Resp B/P (MAP) Pulse Ox O2 Delivery O2 Flow Rate FiO2 01/29/18 04:00 97.3 71 18 127/63 (84) 93 01/29/18 00:00 97.8 72 20 116/59 (78) 94 01/28/18 20:00 97.7 79 18 164/69 (100) 91 01/28/18 16:00 97.9 76 16 113/58 (76) 94 01/28/18 12:30 97.7 75 24 135/63 (87) 92 Nasal Cannula 2 01/28/18 12:15 77 22 147/64 (91) 98 Nasal Cannula 2 01/28/18 12:00 80 24 150/65 (93) 93 Nasal Cannula 2 01/28/18 12:00 97.8 77 18 131/59 (83) 90 01/28/18 11:45 81 20 156/67 (96) 95 Nasal Cannula 2 01/28/18 11:37 98.0 82 16 168/72 (104) 92 Nasal Cannula 2 I/O 01/28/18 01/28/18 01/28/18 01/29/18 01/29/18 01/29/18 07:00 15:00 23:00 07:00 15:00 23:00 Intake Total 1296 ml 303 ml 720 ml Output Total 500 ml 445 ml 1000 ml Balance -500 ml 851 ml 303 ml -280 ml Intake Oral 0 ml 720 ml IV Total 896 ml 303 ml Other 400 ml Output Urine Total 500 ml 370 ml 1000 ml Estimated Blood Loss 75 ml Result Diagram: 01/29/18 0608 01/28/18 0257 Imaging Last 24 hours Impressions Chest X-Ray 01/27/18 1817 Signed Impressions: CONCLUSION: Negative examination. Hip and Pelvis X-Ray 01/27/18 1721 Signed Impressions: CONCLUSION: Acute right intertrochanteric fracture as detailed above. Objective Remarks Dressings are C/D/I. EHL/TA/G intact. 2+ pedal pulse. Calf is soft and nontender. SILT distally. Assessment & Plan Assessment and Plan POD #1: Right hip IMN for intertrochanteric hip fracture 1. WBAT RLE 2. Xarelto for DVT prophylaxis 3. Ice to the right hip PRN 4. Anticipatory discharge to SNF in [place] when appropriate 5. Patient will need to arrange f/u with ortho in [place] Jose Guadalupe Tanner Jan 29, 2018 11:49
[2018-01-29] MEDS: LACTULOSE SYRUP 20 GM/30 ML CUP PO PRN (15:01)
--- NOTE | 2018-01-29 15:18 | HHI.PR ---
Subjective Remarks 82-year-old female with a history of CAD, hyperlipidemia, rheumatoid arthritis and GERD presented to the ED with complaints of right hip pain. Patient states she was running through the rain to catch the soccer game on TV when she came across some steps slipped going up the stairs. She states she really landed on her right hip, denies hitting her head or any LOC. She states the pain is a throbbing, constant, 8/10 to the right hip with no radiation or associated symptoms. She denies any chest pain, shortness of breath, fevers or chills. 01-28 Patient complaint of right hip pain. Ready for surgery today. 01-29 HAD SURGERY ON RIGHT HIP YESTERDAY 01-28 PAIN CONTROL PT AND OT STATES SHE WANTS TO GO [facility] AND PT AND FAMILY AND CASE MANAGEMENT AM LABS Objective Vitals Vital Signs Date Time Temp Pulse Resp B/P (MAP) Pulse Ox O2 Delivery O2 Flow Rate FiO2 01/29/18 04:00 97.3 71 18 127/63 (84) 93 01/29/18 00:00 97.8 72 20 116/59 (78) 94 01/28/18 20:00 97.7 79 18 164/69 (100) 91 01/28/18 16:00 97.9 76 16 113/58 (76) 94 I/O 01/28/18 01/28/18 01/28/18 01/29/18 01/29/18 01/29/18 07:00 15:00 23:00 07:00 15:00 23:00 Intake Total 1296 ml 303 ml 720 ml Output Total 500 ml 445 ml 1000 ml Balance -500 ml 851 ml 303 ml -280 ml Intake Oral 0 ml 720 ml IV Total 896 ml 303 ml Other 400 ml Output Urine Total 500 ml 370 ml 1000 ml Estimated Blood Loss 75 ml Result Diagram: 01/29/18 0608 01/28/18 0257 Other Results Laboratory Tests Test 01/27/18 18:50 01/27/18 19:03 01/28/18 02:57 01/29/18 06:08 White Blood Count 15.6 TH/MM3 11.8 TH/MM3 Red Blood Count 4.99 MIL/MM3 3.83 MIL/MM3 Hemoglobin 15.4 GM/DL 12.3 GM/DL 10.5 GM/DL Hematocrit 47.7 % 36.6 % 31.8 % Mean Corpuscular Volume 95.7 FL 95.5 FL Mean Corpuscular Hemoglobin 30.9 PG 32.0 PG Mean Corpuscular Hemoglobin Concent 32.3 % 33.5 % Red Cell Distribution Width 13.3 % 12.9 % Platelet Count 275 TH/MM3 236 TH/MM3 Mean Platelet Volume 8.9 FL 8.3 FL Neutrophils (%) (Auto) 81.0 % 69.5 % Lymphocytes (%) (Auto) 11.3 % 19.2 % Monocytes (%) (Auto) 6.9 % 9.6 % Eosinophils (%) (Auto) 0.5 % 1.3 % Basophils (%) (Auto) 0.3 % 0.4 % Neutrophils # (Auto) 12.7 TH/MM3 8.2 TH/MM3 Lymphocytes # (Auto) 1.8 TH/MM3 2.3 TH/MM3 Monocytes # (Auto) 1.1 TH/MM3 1.1 TH/MM3 Eosinophils # (Auto) 0.1 TH/MM3 0.2 TH/MM3 Basophils # (Auto) 0.0 TH/MM3 0.0 TH/MM3 CBC Comment DIFF FINAL DIFF FINAL Differential Comment Prothrombin Time 11.2 SEC Prothromb Time International Ratio 1.1 RATIO Activated Partial Thromboplast Time 25.5 SEC Blood Urea Nitrogen 18 MG/DL 17 MG/DL Creatinine 0.92 MG/DL 0.66 MG/DL Random Glucose 209 MG/DL 112 MG/DL Total Protein 8.3 GM/DL Albumin 4.0 GM/DL Calcium Level 9.2 MG/DL 8.1 MG/DL Alkaline Phosphatase 77 U/L Aspartate Amino Transf (AST/SGOT) 41 U/L Alanine Aminotransferase (ALT/SGPT) 31 U/L Total Bilirubin 0.5 MG/DL Sodium Level 140 MEQ/L 145 MEQ/L Potassium Level 4.5 MEQ/L 4.2 MEQ/L Chloride Level 106 MEQ/L 112 MEQ/L Carbon Dioxide Level 21.9 MEQ/L 26.6 MEQ/L Anion Gap 12 MEQ/L 6 MEQ/L Estimat Glomerular Filtration Rate 59 ML/MIN 86 ML/MIN Urine Color YELLOW Urine Turbidity CLOUDY Urine pH 5.0 Urine Specific [place] 1.020 Urine Protein NEG mg/dL Urine Glucose (UA) 50 mg/dL Urine Ketones NEG mg/dL Urine Occult Blood NEG Urine Nitrite POS Urine Bilirubin NEG Urine Urobilinogen LESS THAN 2 mg/dL Urine Leukocyte Esterase SMALL Urine RBC 4 /hpf Urine WBC 24 /hpf Urine Bacteria MANY /hpf Urine Hyaline Casts 10 /lpf Urine Mucus MANY /lpf Microscopic Urinalysis Comment CATH-CULTURE IND 25-Hydroxy Vitamin D Total 23.7 ng/ML Imaging Last Impressions Femur X-Ray 01/28/18 0000 Signed Impressions: CONCLUSION: Excellent alignment of the patient's fracture post intramedullary marlee and troch anteric nail placement. Chest X-Ray 01/27/18 1817 Signed Impressions: CONCLUSION: Negative examination. Hip and Pelvis X-Ray 01/27/18 1721 Signed Impressions: CONCLUSION: Acute right intertrochanteric fracture as detailed above. Objective Remarks GENERAL: Awake alert and oriented 3 talkative and cooperative SKIN: Warm and dry. Right hip is dressed HEAD: Atraumatic. Normocephalic. EYES: Pupils equal and round. No scleral icterus. No injection or drainage. ENT: No nasal bleeding or discharge. Mucous membranes pink and moist. NECK: Trachea midline. No JVD. CARDIOVASCULAR: Regular rate and rhythm. S1-S2 no S3 or S4 right hip is dressed RESPIRATORY: No accessory muscle use. Clear to auscultation. Breath sounds equal bilaterally. GASTROINTESTINAL: Abdomen soft, non-tender, nondistended. Hepatic and splenic margins not palpable. MUSCULOSKELETAL: Extremities without clubbing, cyanosis, or edema. No obvious deformities. NEUROLOGICAL: Awake and alert. No obvious cranial nerve deficits. Motor grossly within normal limits. Five out of 5 muscle strength in the arms and legs. Normal speech. PSYCHIATRIC: Appropriate mood and affect; insight and judgment normal. Procedures Jan 28, 2018 Preoperative Diagnosis: Right hip intertrochanteric fracture Postoperative Diagnosis: Procedure: Right hip reduction and intramedullary fixation Anesthesia: General Surgeon: Kael Meier Champion Of Sustainable Design(s): COREY Li PA-C The surgical procedure was assisted by my physician shipping assistant. My P.A. presence was necessary throughout this case for the manipulation and positioning of the surgical extremity. My P.A. was assisting me throughout the duration of this procedure. The skill set of a physician shipping assistant was medically necessary to complete this procedure. During the surgical case the surgical technology instructor was working at the back table and the physician shipping assistant was directly assisting me. Operation and Findings: Implants used: Biomet 11 mm x [380]mm troch nail Plan of activity: Weight-bear as tolerated Patient was seen and evaluated preoperatively. The patient has significant hip pain from proximal femur fracture. The risk and benefits of surgery were discussed in depth with the patient to include bleeding, infection, nonunion, malunion, need for hip replacement, painful hardware, as well as medical competitions including blood clots, stroke, heart attack, and . Informed consent was obtained. Operative site was marked. Patient was brought to the operating room and placed on fracture table. IV sedation was administered by anesthesiologist. Timeout procedure was performed. Hip and leg were prepped with alcohol followed by DuraPrep and draped in the usual sterile fashion. IV antibiotics were given prior to incision. Procedure began with reduction of fracture. Traction was applied. The leg was manipulated to achieve reduction. Excellent reduction was achieved. Fluoroscopy was used to confirm reduction. A three inch incision was made proximal to the trochanter. Subcutaneous tissue was dissected bluntly. Guidepin was placed at the tip of the trochanter and advanced into the femoral canal. Fluoroscopy confirmed appropriate guidepin placement. A opening reamer was placed over the guidepin. A long ball tipped guide pin was now placed down the femoral canal into the center of the distal femur. The nail length was now measured. Fluoroscopy confirmed appropriate guidepin placement. Flexible reamers were now passed over the guidepin to ream the intramedullary canal. The nail was attached to the insertion handle. Nail was now placed over the guidepin into the femoral canal. Fluoroscopy confirmed appropriate nail placement. A second incision was made over the lateral thigh. Cannulas were placed through the insertion handle down to the femur. Guidepin was now placed through the femoral nail into the center of the femoral head. Fluoroscopy confirmed appropriate guidepin placement. Screw length was measured. Cannulated drill was placed over the guidepin. Appropriate length lag screw was now placed. Traction was released and compression was applied. The set screw was now tightened in dynamic mode. Next, using perfect osage technique 1 distal interlocking screw was placed. Screw holes were predrilled and screw lengths were measured. Final fluoroscopy revealed well aligned fracture with well-placed hardware. Incision was closed with 3-0 Vicryl and adriana. Sterile dressings were applied. Patient was awakened and transferred to recovery room. Kael Meier MD Jan 28, 2018 11:26 <Electronically signed by Kael Meier MD> 01/28/18 1126 Medications and IVs Current Medications Morphine Sulfate (Morphine Inj) 4 mg ONCE ONCE IV PUSH Last administered on at 17:52; Start 01/27/18 at 17:30; Stop 01/27/18 at 17:31; Status DC Ondansetron HCl (Zofran Odt) 4 mg ONCE ONCE PO Last administered on at 17:53; Start 01/27/18 at 17:30; Stop 01/27/18 at 17:31; Status DC Sodium Chloride (NS Flush) 2 ml UNSCH PRN IVF FLUSH AFTER USING IV ACCESS; Start 01/27/18 at 18:30; Stop 01/28/18 at 01:10; Status DC Morphine Sulfate (Morphine Inj) 4 mg Q3H PRN IV PUSH pain hip frx Last administered on 01/28/18at 06:49; Start 01/27/18 at 20:15 Sodium Chloride 1,000 ml @ 75 mls/hr [id number] IV Last administered on at 00:05; Start 01/27/18 at 20:54 Sodium Chloride (NS Flush) 2 ml UNSCH PRN IV FLUSH FLUSH AFTER USING IV ACCESS ; Start 01/27/18 at 21:00 Sodium Chloride (NS Flush) 2 ml BID IV FLUSH Last administered on 01/29/18at 10: 40; Start 01/27/18 at 21:00 Acetaminophen (Tylenol) 650 mg Q4H PRN PO TEMP > 100.4; Start 01/27/18 at 21:00 Ondansetron HCl (Zofran Odt) 4 mg Q6H PRN PO NAUSEA OR VOMITING; Start at 21:00 Naloxone HCl (Narcan Inj) 0.4 mg UNSCH PRN IV PUSH SEE LABEL COMMENTS; Start at 21:00 Senna/Docusate Sodium (Lori-Colace) 1 tab BID PO Last administered on at 10:38; Start 01/27/18 at 21:00 Magnesium Hydroxide (Milk Of Magnesia Liq) 30 ml Q12H PRN PO Mild constipation ; Start 01/27/18 at 21:00 Sennosides (Senokot) 17.2 mg Q12H PRN PO Moderate constipation; Start 01/27/18 at 21:00 Bisacodyl (Dulcolax Supp) 10 mg DAILY PRN RECTAL SEVERE CONSITIPATION; Start at 21:00 Lactulose (Lactulose Liq) 30 ml DAILY PRN PO SEVERE CONSITIPATION Last administered on 01/29/18at 15:01; Start 01/27/18 at 21:00 Morphine Sulfate (Morphine Inj) 4 mg Q3H PRN IV PUSH pain 6-10; Start 01/27/18 at 21:00 Atorvastatin Calcium (Lipitor) 40 mg HS PO Last administered on 01/28/18at 20:41 ; Start 01/27/18 at 21:00 Prednisone (Deltasone) 2.5 mg DAILY PO Last administered on 01/29/18at 10:38; Start 01/28/18 at 09:00 Lactated Ringer's 1,000 ml @ 30 mls/hr Q24H PRN IV SEE LABEL COMMENTS Last administered on 01/28/18at 09:40; Start 01/28/18 at 01:15; Stop 01/31/18 at 01:14 Sodium Chloride 500 ml @ 30 mls/hr [id number] PRN IV SEE LABEL COMMENTS; Start at 01:15; Stop 01/31/18 at 01:14 Metoprolol Tartrate (Lopressor) 25 mg SLAB LIFTING SUPERVISOR PRN PO SEE LABEL COMMENTS; Start 01/28/18 at 01:15; Stop 01/31/18 at 01:14 Povidone Iodine (Betadine 5% Antisepsis Kit) 1 applic SLAB LIFTING SUPERVISOR PRN EACH NARE SEE LABEL COMMENTS; Start 01/28/18 at 01:15; Stop 01/31/18 at 01:14 Chlorhexidine Gluconate (Chlorhexidine 2% Cloth) 3 pack SLAB LIFTING SUPERVISOR PRN TOPICAL SEE LABEL COMMENTS; Start 01/28/18 at 01:15; Stop 01/31/18 at 01:14 Bupivacaine HCl/ Epinephrine Bitart (Sensorcaine-Epinephrine Pf 0.25% Inj) 10 ml STK-MED ONCE .ROUTE ; Start 01/28/18 at 09:12; Stop 01/28/18 at 09:13; Status DC Vancomycin HCl (Vancomycin Inj) 1,000 mg STK-MED ONCE .ROUTE Last administered on 01/28/18at 10:35; Start 01/28/18 at 09:12; Stop 01/28/18 at 09:13; Status DC Cefazolin Sodium (Ancef Inj) 1,000 mg STK-MED ONCE .ROUTE Last administered on 01/28/18at 10:36; Start 01/28/18 at 09:12; Stop 01/28/18 at 09:13; Status DC Gentamicin Sulfate (Gentamicin Inj) 240 mg STK-MED ONCE .ROUTE Last administered on 01/28/18at 10:55; Start 01/28/18 at 09:12; Stop 01/28/18 at 09:13 ; Status DC Sodium Chloride 250 ml @ As Directed STK-MED ONCE .ROUTE Last administered on 01/28/18at 10:35; Start 01/28/18 at 09:12; Stop 01/28/18 at 09:13; Status DC Acetaminophen 100 ml @ As Directed STK-MED ONCE IV ; Start 01/28/18 at 10:15; Stop 01/28/18 at 10:16; Status DC Methylprednisolone Sodium Succinate (SoluMEDROL INJ) 125 mg STK-MED ONCE .ROUTE ; Start 01/28/18 at 10:16; Stop 01/28/18 at 10:17; Status DC Enoxaparin Sodium (Lovenox Inj) 30 mg Q24H SQ Last administered on 01/29/18at 10 :40; Start 01/29/18 at 10:30 Cefazolin Sodium 1000 mg/Sodium Chloride 100 ml @ 200 mls/hr Q8H IV Last administered on 01/29/18at 10:40; Start 01/28/18 at 18:00; Stop 01/29/18 at 10:29 ; Status DC Calcium/Vitamin D (Oscal-D 250-125) 250 mg TID PO Last administered on at 14:51; Start 01/28/18 at 13:00 Diphenhydramine HCl (Benadryl) 25 mg Q6H PRN PO ITCHING; Start 01/28/18 at 11: 30 Acetaminophen/ Hydrocodone Bitart ([place] 7.5-325 Mg) 1 tab Q3H PRN PO pain 3< 10 Last administered on 01/29/18at 14:51; Start 01/28/18 at 11:30 Morphine Sulfate (Morphine Inj) 3 mg Q3H PRN IV PUSH break thru pain; Start at 11:30 Cholecalciferol (Vitamin D3) 5,000 units DAILY PO Last administered on at 10:38; Start 01/29/18 at 09:00 Ergocalciferol (Drisdol) 50,000 units ONCE ONCE PO Last administered on at 16:07; Start 01/28/18 at 13:30; Stop 01/28/18 at 13:31; Status DC Fentanyl Citrate (fentaNYL INJ) 200 mcg STK-MED ONCE .ROUTE ; Start 01/28/18 at 11:45; Stop 01/28/18 at 11:46; Status DC Miscellaneous Information ([facility] [place] Nursing Information) ALL NURSING DEPARTME... UNSCH PRN .XX SEE LABEL COMMENTS; Start 01/28/18 at 11:37; Stop 01/29/18 at 11: 36; Status DC A/P Assessment and Plan 82-year-old female with a history of CAD, hyperlipidemia, rheumatoid arthritis and GERD presented to the ED with complaints of right hip pain. 1. Hip Fracture, right Hip x ray revealed a right intertrochanteric fracture For surgical intervention with Dr. Meier status post hip surgery on January 28 -Pain management with IV Morphine 2. Hyperlipidemia, chronic -Resume home medications statin 3. Rheumatoid arthritis -Resume home prednisone 4. DVT prophylaxis: SCDs on nonaffected leg, start anticoagulation per orthopedics after surgery PT and OT to eval and treat Discharge Planning Family states they want to take her to [facility] as well as the patient Bryan Cardenas DO Jan 29, 2018 15:18
[2018-01-29 16:00] VITALS: BP 140/63; PULSE 75; RESP 16; TEMP 97.5; O2SAT 92
[2018-01-29 20:00] VITALS: BP 117/67; PULSE 75; RESP 20; TEMP 97.7; O2SAT 94
[2018-01-29] MEDS: ATORVASTATIN 40 MG TAB PO SCH (20:31)
[2018-01-30] VITALS: BP 112/53; PULSE 73; RESP 18; TEMP 97.2; O2SAT 93
[2018-01-30] MEDS: ACETAMINOPHEN/HYDROcodone 325 MG/7.5 MG TAB PO PRN ×6 (01:17→23:32)
[2018-01-30] MEDS: SODIUM CHLOR 0.9% 1000 ML INJ 1,000 ML IV SCH ×2 (02:14→15:34)
[2018-01-30 06:35] LABS: BASOPHIL % 0.2 % (0.0-2.0); EOSINOPHIL # 0.2 TH/MM3 (0-0.4); EOSINOPHIL % 1.7 % (0.0-4.0); HEMATOCRIT 27.2 % (35.0-46.0); HEMOGLOBIN 9.1 GM/DL (11.6-15.3); LYMPH % 18.2 % (9.0-44.0); LYMPHOCYTE # 2.6 TH/MM3 (1.0-4.8); MEAN CELL VOLUME 95.2 FL (80.0-100.0); MEAN CORPUSCULAR HEMOGLOBIN 31.6 PG (27.0-34.0); MEAN CORPUSCULAR HGB CONC 33.3 % (32.0-36.0); MEAN PLATELET VOLUME 8.8 FL (7.0-11.0); MONO % 9.2 % (0.0-8.0); MONOCYTE # 1.3 TH/MM3 (0-0.9); NEUT % 70.7 % (16.0-70.0); PLATELET COUNT 198 TH/MM3 (150-450); RED BLOOD COUNT 2.86 MIL/MM3 (4.00-5.30); WHITE BLOOD COUNT 14.1 TH/MM3 (4.0-11.0)
[2018-01-30] MEDS: MAGNESIUM HYDROXIDE SUSP 30 ML CUP PO PRN (06:41)
[2018-01-30 07:14] LABS: ALBUMIN 2.6 GM/DL (3.4-5.0); ALKALINE PHOSPHATASE 51 U/L (45-117); ALT (GPT) 17 U/L (10-53); AST (GOT) 17 U/L (15-37); BICARBONATE 26.3 MEQ/L (21.0-32.0); BLOOD UREA NITROGEN 26 MG/DL (7-18); CALCIUM 8.2 MG/DL (8.5-10.1); CHLORIDE 108 MEQ/L (98-107); CREATININE 0.63 MG/DL (0.50-1.00); FREE T4 1.47 NG/DL (0.76-1.46); GLOMERULAR FILTRATION RATE 91 ML/MIN (>89); GLUCOSE,RANDOM 87 MG/DL (74-106); MAGNESIUM 1.9 MG/DL (1.5-2.5); PHOSPHORUS 3.3 MG/DL (2.5-4.9); SODIUM (NA) 142 MEQ/L (136-145); TOTAL BILIRUBIN ADULT 0.4 MG/DL (0.2-1.0); TOTAL PROTEIN 5.4 GM/DL (6.4-8.2)
--- NOTE | 2018-01-30 08:05 | PD.ORT.PN ---
Subjective Post Op Day #: pod right troch nail, sitting in chair, awake alert ,nad Objective Vitals Vital Signs Date Time Temp Pulse Resp B/P (MAP) Pulse Ox O2 Delivery O2 Flow Rate FiO2 01/30/18 00:00 97.2 73 18 112/53 (72) 93 01/29/18 20:00 97.7 75 20 117/67 (84) 94 01/29/18 16:00 97.5 75 16 140/63 (88) 92 I/O 01/29/18 01/29/18 01/29/18 01/30/18 01/30/18 01/30/18 07:00 15:00 23:00 07:00 15:00 23:00 Intake Total 720 ml 720 ml Output Total 1000 ml Balance -280 ml 720 ml Intake Oral 720 ml 720 ml Output Urine Total 1000 ml # Voids 3 Result Diagram: 01/30/18 0535 01/30/18 0535 Imaging Last 24 hours Impressions Chest X-Ray 01/27/18 1817 Signed Impressions: CONCLUSION: Negative examination. Hip and Pelvis X-Ray 01/27/18 1721 Signed Impressions: CONCLUSION: Acute right intertrochanteric fracture as detailed above. Objective Remarks Dressings are C/D/I. EHL/TA/G intact. 2+ pedal pulse. Calf is soft and nontender. SILT distally. Assessment & Plan Assessment and Plan POD #2: Right hip IMN for intertrochanteric hip fracture 1. WBAT RLE 2. Xarelto for DVT prophylaxis 3. Ice to the right hip PRN 4. Anticipatory discharge to SNF in [place] when appropriate 5. Patient will need to arrange f/u with ortho in [place] Enmanuel Redman MD Jan 30, 2018 08:05
[2018-01-30] MEDS: predniSONE 5 MG TAB PO SCH (08:29)
[2018-01-30] MEDS: CALCIUM/VITAMIN D 250 MG/125 U TAB PO SCH ×3 (08:29→17:02)
[2018-01-30] MEDS: CHOLECALCIFEROL (VIT D3) 5000 UNIT CAP PO SCH (08:29)
[2018-01-30] MEDS: LACTULOSE SYRUP 20 GM/30 ML CUP PO PRN (08:29)
[2018-01-30] MEDS: DOCUSATE SODIUM 50 MG/SENNA 8.6 MG TAB PO SCH ×2 (08:29→21:58)
[2018-01-30] MEDS: SODIUM CHLORIDE 0.9% FLUSH 10 ML FLUSH IV FLUSH SCH ×2 (08:30→21:58)
[2018-01-30] MEDS: ENOXAPARIN SODIUM 30 MG/0.3 ML SYRINGE SQ SCH (08:33)
--- NOTE | 2018-01-30 10:53 | HHI.PR ---
Subjective Remarks 82-year-old female with a history of CAD, hyperlipidemia, rheumatoid arthritis and GERD presented to the ED with complaints of right hip pain. Patient states she was running through the rain to catch the soccer game on TV when she came across some steps slipped going up the stairs. She states she really landed on her right hip, denies hitting her head or any LOC. She states the pain is a throbbing, constant, 8/10 to the right hip with no radiation or associated symptoms. She denies any chest pain, shortness of breath, fevers or chills. 01-28 Patient complaint of right hip pain. Ready for surgery today. 01-29 HAD SURGERY ON RIGHT HIP YESTERDAY 01-28 PAIN CONTROL PT AND OT STATES SHE WANTS TO GO TO [facility] [place] [facility] RN AND PT AND FAMILY AND CASE MANAGEMENT AM LABS 01-30 NO NEW COMPLAINTS HAS SOME RIGHT HIP PAIN AMBULATING BETTER GOING TO BATHROOM IFTIKHAR RN AND PT AM LABS DC TO [facility] IN NEXT 24 TO 48 HOURS Objective Vitals Vital Signs Date Time Temp Pulse Resp B/P (MAP) Pulse Ox O2 Delivery O2 Flow Rate FiO2 01/30/18 00:00 97.2 73 18 112/53 (72) 93 01/29/18 20:00 97.7 75 20 117/67 (84) 94 01/29/18 16:00 97.5 75 16 140/63 (88) 92 I/O 01/29/18 01/29/18 01/29/18 01/30/18 01/30/18 01/30/18 07:00 15:00 23:00 07:00 15:00 23:00 Intake Total 720 ml 720 ml Output Total 1000 ml Balance -280 ml 720 ml Intake Oral 720 ml 720 ml Output Urine Total 1000 ml # Voids 3 Result Diagram: 01/30/18 0535 01/30/18 0535 Other Results Laboratory Tests Test 01/27/18 18:50 01/27/18 19:03 01/28/18 02:57 01/29/18 06:08 White Blood Count 15.6 TH/MM3 11.8 TH/MM3 Red Blood Count 4.99 MIL/MM3 3.83 MIL/MM3 Hemoglobin 15.4 GM/DL 12.3 GM/DL 10.5 GM/DL Hematocrit 47.7 % 36.6 % 31.8 % Mean Corpuscular Volume 95.7 FL 95.5 FL Mean Corpuscular Hemoglobin 30.9 PG 32.0 PG Mean Corpuscular Hemoglobin Concent 32.3 % 33.5 % Red Cell Distribution Width 13.3 % 12.9 % Platelet Count 275 TH/MM3 236 TH/MM3 Mean Platelet Volume 8.9 FL 8.3 FL Neutrophils (%) (Auto) 81.0 % 69.5 % Lymphocytes (%) (Auto) 11.3 % 19.2 % Monocytes (%) (Auto) 6.9 % 9.6 % Eosinophils (%) (Auto) 0.5 % 1.3 % Basophils (%) (Auto) 0.3 % 0.4 % Neutrophils # (Auto) 12.7 TH/MM3 8.2 TH/MM3 Lymphocytes # (Auto) 1.8 TH/MM3 2.3 TH/MM3 Monocytes # (Auto) 1.1 TH/MM3 1.1 TH/MM3 Eosinophils # (Auto) 0.1 TH/MM3 0.2 TH/MM3 Basophils # (Auto) 0.0 TH/MM3 0.0 TH/MM3 CBC Comment DIFF FINAL DIFF FINAL Differential Comment Prothrombin Time 11.2 SEC Prothromb Time International Ratio 1.1 RATIO Activated Partial Thromboplast Time 25.5 SEC Blood Urea Nitrogen 18 MG/DL 17 MG/DL Creatinine 0.92 MG/DL 0.66 MG/DL Random Glucose 209 MG/DL 112 MG/DL Total Protein 8.3 GM/DL Albumin 4.0 GM/DL Calcium Level 9.2 MG/DL 8.1 MG/DL Alkaline Phosphatase 77 U/L Aspartate Amino Transf (AST/SGOT) 41 U/L Alanine Aminotransferase (ALT/SGPT) 31 U/L Total Bilirubin 0.5 MG/DL Sodium Level 140 MEQ/L 145 MEQ/L Potassium Level 4.5 MEQ/L 4.2 MEQ/L Chloride Level 106 MEQ/L 112 MEQ/L Carbon Dioxide Level 21.9 MEQ/L 26.6 MEQ/L Anion Gap 12 MEQ/L 6 MEQ/L Estimat Glomerular Filtration Rate 59 ML/MIN 86 ML/MIN Urine Color YELLOW Urine Turbidity CLOUDY Urine pH 5.0 Urine Specific [place] 1.020 Urine Protein NEG mg/dL Urine Glucose (UA) 50 mg/dL Urine Ketones NEG mg/dL Urine Occult Blood NEG Urine Nitrite POS Urine Bilirubin NEG Urine Urobilinogen LESS THAN 2 mg/dL Urine Leukocyte Esterase SMALL Urine RBC 4 /hpf Urine WBC 24 /hpf Urine Bacteria MANY /hpf Urine Hyaline Casts 10 /lpf Urine Mucus MANY /lpf Microscopic Urinalysis Comment CATH-CULTURE IND 25-Hydroxy Vitamin D Total 23.7 ng/ML Test 01/30/18 05:35 White Blood Count 14.1 TH/MM3 Red Blood Count 2.86 MIL/MM3 Hemoglobin 9.1 GM/DL Hematocrit 27.2 % Mean Corpuscular Volume 95.2 FL Mean Corpuscular Hemoglobin 31.6 PG Mean Corpuscular Hemoglobin Concent 33.3 % Red Cell Distribution Width 13.0 % Platelet Count 198 TH/MM3 Mean Platelet Volume 8.8 FL Neutrophils (%) (Auto) 70.7 % Lymphocytes (%) (Auto) 18.2 % Monocytes (%) (Auto) 9.2 % Eosinophils (%) (Auto) 1.7 % Basophils (%) (Auto) 0.2 % Neutrophils # (Auto) 10.0 TH/MM3 Lymphocytes # (Auto) 2.6 TH/MM3 Monocytes # (Auto) 1.3 TH/MM3 Eosinophils # (Auto) 0.2 TH/MM3 Basophils # (Auto) 0.0 TH/MM3 CBC Comment DIFF FINAL Differential Comment Blood Urea Nitrogen 26 MG/DL Creatinine 0.63 MG/DL Random Glucose 87 MG/DL Total Protein 5.4 GM/DL Albumin 2.6 GM/DL Calcium Level 8.2 MG/DL Phosphorus Level 3.3 MG/DL Magnesium Level 1.9 MG/DL Alkaline Phosphatase 51 U/L Aspartate Amino Transf (AST/SGOT) 17 U/L Alanine Aminotransferase (ALT/SGPT) 17 U/L Total Bilirubin 0.4 MG/DL Sodium Level 142 MEQ/L Potassium Level 4.1 MEQ/L Chloride Level 108 MEQ/L Carbon Dioxide Level 26.3 MEQ/L Anion Gap 8 MEQ/L Estimat Glomerular Filtration Rate 91 ML/MIN Free Thyroxine 1.47 NG/DL Thyroid Stimulating Hormone 3rd Gen 0.094 uIU/ML Imaging Last Impressions Femur X-Ray 01/28/18 0000 Signed Impressions: CONCLUSION: Excellent alignment of the patient's fracture post intramedullary marlee and troch anteric nail placement. Chest X-Ray 01/27/18 1817 Signed Impressions: CONCLUSION: Negative examination. Hip and Pelvis X-Ray 01/27/18 1721 Signed Impressions: CONCLUSION: Acute right intertrochanteric fracture as detailed above. Objective Remarks GENERAL: Awake alert and oriented 3 talkative and cooperative SKIN: Warm and dry. Right hip is dressed HEAD: Atraumatic. Normocephalic. EYES: Pupils equal and round. No scleral icterus. No injection or drainage. ENT: No nasal bleeding or discharge. Mucous membranes pink and moist. NECK: Trachea midline. No JVD. CARDIOVASCULAR: Regular rate and rhythm. S1-S2 no S3 or S4 right hip is dressed RESPIRATORY: No accessory muscle use. Clear to auscultation. Breath sounds equal bilaterally. GASTROINTESTINAL: Abdomen soft, non-tender, nondistended. Hepatic and splenic margins not palpable. MUSCULOSKELETAL: Extremities without clubbing, cyanosis, or edema. No obvious deformities. NEUROLOGICAL: Awake and alert. No obvious cranial nerve deficits. Motor grossly within normal limits. Five out of 5 muscle strength in the arms and legs. Normal speech. PSYCHIATRIC: Appropriate mood and affect; insight and judgment normal. Procedures Jan 28, 2018 Preoperative Diagnosis: Right hip intertrochanteric fracture Postoperative Diagnosis: Procedure: Right hip reduction and intramedullary fixation Anesthesia: General Surgeon: Kael Meier Writer Technical Publications(s): COREY Li PA-C The surgical procedure was assisted by my physician offset assistant press operator. My P.A. presence was necessary throughout this case for the manipulation and positioning of the surgical extremity. My P.A. was assisting me throughout the duration of this procedure. The skill set of a physician offset assistant press operator was medically necessary to complete this procedure. During the surgical case the surgical services asst was working at the back table and the physician offset assistant press operator was directly assisting me. Operation and Findings: Implants used: Biomet 11 mm x [380]mm troch nail Plan of activity: Weight-bear as tolerated Patient was seen and evaluated preoperatively. The patient has significant hip pain from proximal femur fracture. The risk and benefits of surgery were discussed in depth with the patient to include bleeding, infection, nonunion, malunion, need for hip replacement, painful hardware, as well as medical competitions including blood clots, stroke, heart attack, and . Informed consent was obtained. Operative site was marked. Patient was brought to the operating room and placed on fracture table. IV sedation was administered by anesthesiologist. Timeout procedure was performed. Hip and leg were prepped with alcohol followed by DuraPrep and draped in the usual sterile fashion. IV antibiotics were given prior to incision. Procedure began with reduction of fracture. Traction was applied. The leg was manipulated to achieve reduction. Excellent reduction was achieved. Fluoroscopy was used to confirm reduction. A three inch incision was made proximal to the trochanter. Subcutaneous tissue was dissected bluntly. Guidepin was placed at the tip of the trochanter and advanced into the femoral canal. Fluoroscopy confirmed appropriate guidepin placement. A opening reamer was placed over the guidepin. A long ball tipped guide pin was now placed down the femoral canal into the center of the distal femur. The nail length was now measured. Fluoroscopy confirmed appropriate guidepin placement. Flexible reamers were now passed over the guidepin to ream the intramedullary canal. The nail was attached to the insertion handle. Nail was now placed over the guidepin into the femoral canal. Fluoroscopy confirmed appropriate nail placement. A second incision was made over the lateral thigh. Cannulas were placed through the insertion handle down to the femur. Guidepin was now placed through the femoral nail into the center of the femoral head. Fluoroscopy confirmed appropriate guidepin placement. Screw length was measured. Cannulated drill was placed over the guidepin. Appropriate length lag screw was now placed. Traction was released and compression was applied. The set screw was now tightened in dynamic mode. Next, using perfect [place] technique 1 distal interlocking screw was placed. Screw holes were predrilled and screw lengths were measured. Final fluoroscopy revealed well aligned fracture with well-placed hardware. Incision was closed with 3-0 Vicryl and adriana. Sterile dressings were applied. Patient was awakened and transferred to recovery room. Kael Meier MD Jan 28, 2018 11:26 <Electronically signed by Kael Meier MD> 01/28/18 1126 Medications and IVs Current Medications Morphine Sulfate (Morphine Inj) 4 mg ONCE ONCE IV PUSH Last administered on at 17:52; Start 01/27/18 at 17:30; Stop 01/27/18 at 17:31; Status DC Ondansetron HCl (Zofran Odt) 4 mg ONCE ONCE PO Last administered on at 17:53; Start 01/27/18 at 17:30; Stop 01/27/18 at 17:31; Status DC Sodium Chloride (NS Flush) 2 ml UNSCH PRN IVF FLUSH AFTER USING IV ACCESS; Start 01/27/18 at 18:30; Stop 01/28/18 at 01:10; Status DC Morphine Sulfate (Morphine Inj) 4 mg Q3H PRN IV PUSH pain hip frx Last administered on 01/28/18at 06:49; Start 01/27/18 at 20:15 Sodium Chloride 1,000 ml @ 75 mls/hr [id number] IV Last administered on at 00:05; Start 01/27/18 at 20:54 Sodium Chloride (NS Flush) 2 ml UNSCH PRN IV FLUSH FLUSH AFTER USING IV ACCESS ; Start 01/27/18 at 21:00 Sodium Chloride (NS Flush) 2 ml BID IV FLUSH Last administered on 01/30/18at 08: 30; Start 01/27/18 at 21:00 Acetaminophen (Tylenol) 650 mg Q4H PRN PO TEMP > 100.4; Start 01/27/18 at 21:00 Ondansetron HCl (Zofran Odt) 4 mg Q6H PRN PO NAUSEA OR VOMITING; Start at 21:00 Naloxone HCl (Narcan Inj) 0.4 mg UNSCH PRN IV PUSH SEE LABEL COMMENTS; Start at 21:00 Senna/Docusate Sodium (Lori-Colace) 1 tab BID PO Last administered on at 08:29; Start 01/27/18 at 21:00 Magnesium Hydroxide (Milk Of Magnesia Liq) 30 ml Q12H PRN PO Mild constipation Last administered on 01/30/18at 06:41; Start 01/27/18 at 21:00 Sennosides (Senokot) 17.2 mg Q12H PRN PO Moderate constipation Last administered on 01/29/18at 20:35; Start 01/27/18 at 21:00 Bisacodyl (Dulcolax Supp) 10 mg DAILY PRN RECTAL SEVERE CONSITIPATION; Start at 21:00 Lactulose (Lactulose Liq) 30 ml DAILY PRN PO SEVERE CONSITIPATION Last administered on 01/30/18at 08:29; Start 01/27/18 at 21:00 Morphine Sulfate (Morphine Inj) 4 mg Q3H PRN IV PUSH pain 6-10; Start 01/27/18 at 21:00 Atorvastatin Calcium (Lipitor) 40 mg HS PO Last administered on 01/29/18at 20:31 ; Start 01/27/18 at 21:00 Prednisone (Deltasone) 2.5 mg DAILY PO Last administered on 01/30/18at 08:29; Start 01/28/18 at 09:00 Lactated Ringer's 1,000 ml @ 30 mls/hr Q24H PRN IV SEE LABEL COMMENTS Last administered on 01/28/18at 09:40; Start 01/28/18 at 01:15; Stop 01/31/18 at 01:14 Sodium Chloride 500 ml @ 30 mls/hr [id number] PRN IV SEE LABEL COMMENTS; Start at 01:15; Stop 01/31/18 at 01:14 Metoprolol Tartrate (Lopressor) 25 mg CORRUGATOR MACHINE OPERATOR PRN PO SEE LABEL COMMENTS; Start 01/28/18 at 01:15; Stop 01/31/18 at 01:14 Povidone Iodine (Betadine 5% Antisepsis Kit) 1 applic CORRUGATOR MACHINE OPERATOR PRN EACH NARE SEE LABEL COMMENTS; Start 01/28/18 at 01:15; Stop 01/31/18 at 01:14 Chlorhexidine Gluconate (Chlorhexidine 2% Cloth) 3 pack CORRUGATOR MACHINE OPERATOR PRN TOPICAL SEE LABEL COMMENTS; Start 01/28/18 at 01:15; Stop 01/31/18 at 01:14 Bupivacaine HCl/ Epinephrine Bitart (Sensorcaine-Epinephrine Pf 0.25% Inj) 10 ml STK-MED ONCE .ROUTE ; Start 01/28/18 at 09:12; Stop 01/28/18 at 09:13; Status DC Vancomycin HCl (Vancomycin Inj) 1,000 mg STK-MED ONCE .ROUTE Last administered on 01/28/18at 10:35; Start 01/28/18 at 09:12; Stop 01/28/18 at 09:13; Status DC Cefazolin Sodium (Ancef Inj) 1,000 mg STK-MED ONCE .ROUTE Last administered on 01/28/18at 10:36; Start 01/28/18 at 09:12; Stop 01/28/18 at 09:13; Status DC Gentamicin Sulfate (Gentamicin Inj) 240 mg STK-MED ONCE .ROUTE Last administered on 01/28/18at 10:55; Start 01/28/18 at 09:12; Stop 01/28/18 at 09:13 ; Status DC Sodium Chloride 250 ml @ As Directed STK-MED ONCE .ROUTE Last administered on 01/28/18at 10:35; Start 01/28/18 at 09:12; Stop 01/28/18 at 09:13; Status DC Acetaminophen 100 ml @ As Directed STK-MED ONCE IV ; Start 01/28/18 at 10:15; Stop 01/28/18 at 10:16; Status DC Methylprednisolone Sodium Succinate (SoluMEDROL INJ) 125 mg STK-MED ONCE .ROUTE ; Start 01/28/18 at 10:16; Stop 01/28/18 at 10:17; Status DC Enoxaparin Sodium (Lovenox Inj) 30 mg Q24H SQ Last administered on 01/30/18at 08 :33; Start 01/29/18 at 10:30 Cefazolin Sodium 1000 mg/Sodium Chloride 100 ml @ 200 mls/hr Q8H IV Last administered on 01/29/18at 10:40; Start 01/28/18 at 18:00; Stop 01/29/18 at 10:29 ; Status DC Calcium/Vitamin D (Oscal-D 250-125) 250 mg TID PO Last administered on at 08:29; Start 01/28/18 at 13:00 Diphenhydramine HCl (Benadryl) 25 mg Q6H PRN PO ITCHING; Start 01/28/18 at 11: 30 Acetaminophen/ Hydrocodone Bitart ([place] 7.5-325 Mg) 1 tab Q3H PRN PO pain 3< 10 Last administered on 01/30/18at 06:35; Start 01/28/18 at 11:30 Morphine Sulfate (Morphine Inj) 3 mg Q3H PRN IV PUSH break thru pain; Start at 11:30 Cholecalciferol (Vitamin D3) 5,000 units DAILY PO Last administered on at 08:29; Start 01/29/18 at 09:00 Ergocalciferol (Drisdol) 50,000 units ONCE ONCE PO Last administered on at 16:07; Start 01/28/18 at 13:30; Stop 01/28/18 at 13:31; Status DC Fentanyl Citrate (fentaNYL INJ) 200 mcg STK-MED ONCE .ROUTE ; Start 01/28/18 at 11:45; Stop 01/28/18 at 11:46; Status DC Miscellaneous Information ([facility]) ALL NURSING DEPARTME... UNSCH PRN .XX SEE LABEL COMMENTS; Start 01/28/18 at 11:37; Stop 01/29/18 at 11: 36; Status DC A/P Assessment and Plan 82-year-old female with a history of CAD, hyperlipidemia, rheumatoid arthritis and GERD presented to the ED with complaints of right hip pain. 1. Hip Fracture, right Hip x ray revealed a right intertrochanteric fracture For surgical intervention with Dr. Meier status post hip surgery on January 28 -Pain management with IV Morphine 2. Hyperlipidemia, chronic -Resume home medications statin 3. Rheumatoid arthritis -Resume home prednisone 4. DVT prophylaxis: SCDs on nonaffected leg, start anticoagulation per orthopedics after surgery 5. UTI - E.COLI START ROCEPHIN- CAN SWITCH TO CEFTIN AT DC PT and OT to eval and treat Discharge Planning Family states they want to take her to [facility] as well as the patient Bryan Cardenas DO Jan 30, 2018 10:53
[2018-01-30 12:00] VITALS: BP 111/75; PULSE 78; RESP 16; TEMP 98; O2SAT 96
[2018-01-30 12:21] LABS: HEMOGLOBIN A1C 5.6 % (4.3-6.0)
[2018-01-30] MEDS: cefTRIAXone INJ 1,000 MG in SODIUM CHLORIDE 0.9% INJ 100 ML IV SCH (13:12)
[2018-01-30 20:35] VITALS: BP 121/58; PULSE 76; RESP 16; TEMP 97.9; O2SAT 93
[2018-01-30] MEDS: ATORVASTATIN 40 MG TAB PO SCH (21:58)
[2018-01-31 00:45] VITALS: BP 119/57; PULSE 76; RESP 16; TEMP 98.3; O2SAT 94
[2018-01-31] MEDS: ACETAMINOPHEN/HYDROcodone 325 MG/7.5 MG TAB PO PRN ×5 (05:02→20:45)
--- NOTE | 2018-01-31 07:29 | PD.ORT.PN ---
Subjective Subjective Remarks Pain controlled resting comfortably Objective Vitals Vital Signs Date Time Temp Pulse Resp B/P (MAP) Pulse Ox O2 Delivery O2 Flow Rate FiO2 01/31/18 00:45 98.3 76 16 119/57 (77) 94 01/30/18 20:35 97.9 76 16 121/58 (79) 93 01/30/18 12:00 98.0 78 16 111/75 (87) 96 I/O 01/30/18 01/30/18 01/30/18 01/31/18 01/31/18 01/31/18 07:00 15:00 23:00 07:00 15:00 23:00 Intake Total 720 ml 600 ml 360 ml Balance 720 ml 600 ml 360 ml Intake Oral 720 ml 600 ml 360 ml # Voids 3 5 2 # Bowel Movements 3 0 Result Diagram: 01/30/18 0535 01/30/18 0535 Imaging Last 24 hours Impressions Chest X-Ray 01/27/18 1817 Signed Impressions: CONCLUSION: Negative examination. Hip and Pelvis X-Ray 01/27/18 1721 Signed Impressions: CONCLUSION: Acute right intertrochanteric fracture as detailed above. Objective Remarks Dressings are C/D/I. EHL/TA/G intact. 2+ pedal pulse. Calf is soft and nontender. SILT distally. Assessment & Plan Assessment and Plan POD #3: Right hip IMN for intertrochanteric hip fracture 1. WBAT RLE 2. Xarelto for DVT prophylaxis 3. Ice to the right hip PRN 4. Anticipatory discharge to SNF in [place] when appropriate 5. Patient will need to arrange f/u with ortho in [place] 6. Daily dressing changes Xeroform and Primapore Presley Iqbal Jr. Jan 31, 2018 07:29
[2018-01-31 08:00] VITALS: BP 151/74; PULSE 76; RESP 18; TEMP 98.3; O2SAT 92
[2018-01-31] MEDS: CHOLECALCIFEROL (VIT D3) 5000 UNIT CAP PO SCH (08:53)
[2018-01-31] MEDS: CALCIUM/VITAMIN D 250 MG/125 U TAB PO SCH ×3 (08:53→17:01)
[2018-01-31] MEDS: predniSONE 5 MG TAB PO SCH (08:53)
[2018-01-31] MEDS: ENOXAPARIN SODIUM 30 MG/0.3 ML SYRINGE SQ SCH (08:53)
[2018-01-31] MEDS: DOCUSATE SODIUM 50 MG/SENNA 8.6 MG TAB PO SCH ×2 (08:53→20:45)
[2018-01-31] MEDS: SODIUM CHLORIDE 0.9% FLUSH 10 ML FLUSH IV FLUSH SCH ×2 (09:00→20:46)
[2018-01-31 09:50] LABS: BASOPHIL % 0.4 % (0.0-2.0); EOSINOPHIL # 0.4 TH/MM3 (0-0.4); EOSINOPHIL % 3.4 % (0.0-4.0); HEMATOCRIT 30.3 % (35.0-46.0); LYMPH % 32.3 % (9.0-44.0); LYMPHOCYTE # 3.6 TH/MM3 (1.0-4.8); MEAN CELL VOLUME 95.6 FL (80.0-100.0); MEAN CORPUSCULAR HEMOGLOBIN 31.5 PG (27.0-34.0); MEAN CORPUSCULAR HGB CONC 32.9 % (32.0-36.0); MEAN PLATELET VOLUME 8.4 FL (7.0-11.0); MONO % 10.4 % (0.0-8.0); MONOCYTE # 1.2 TH/MM3 (0-0.9); NEUT % 53.5 % (16.0-70.0); PLATELET COUNT 238 TH/MM3 (150-450); RED BLOOD COUNT 3.17 MIL/MM3 (4.00-5.30); WHITE BLOOD COUNT 11.2 TH/MM3 (4.0-11.0)
--- NOTE | 2018-01-31 10:39 | HHI.PR ---
Subjective Remarks 82-year-old female with a history of CAD, hyperlipidemia, rheumatoid arthritis and GERD presented to the ED with complaints of right hip pain. Patient states she was running through the rain to catch the soccer game on TV when she came across some steps slipped going up the stairs. She states she really landed on her right hip, denies hitting her head or any LOC. She states the pain is a throbbing, constant, 8/10 to the right hip with no radiation or associated symptoms. She denies any chest pain, shortness of breath, fevers or chills. 01-28 Patient complaint of right hip pain. Ready for surgery today. 01-29 HAD SURGERY ON RIGHT HIP YESTERDAY 01-28 PAIN CONTROL PT AND OT STATES SHE WANTS TO GO TO [facility] [place] DW RN AND PT AND FAMILY AND CASE MANAGEMENT AM LABS 01-30 NO NEW COMPLAINTS HAS SOME RIGHT HIP PAIN AMBULATING BETTER GOING TO BATHROOM DW RN AND PT AM LABS DC TO [facility] IN NEXT 24 TO 48 HOURS 01-31 CLEARED BY ORTHO FOR DC FAMILY CAN TRANSPORT TO [facility] [place] DW RN AND PT AND CM DC TO SNF TODAY Objective Vitals Vital Signs Date Time Temp Pulse Resp B/P (MAP) Pulse Ox O2 Delivery O2 Flow Rate FiO2 01/31/18 08:00 98.3 76 18 151/74 (99) 92 01/31/18 00:45 98.3 76 16 119/57 (77) 94 01/30/18 20:35 97.9 76 16 121/58 (79) 93 01/30/18 12:00 98.0 78 16 111/75 (87) 96 I/O 01/30/18 01/30/18 01/30/18 01/31/18 01/31/18 01/31/18 07:00 15:00 23:00 07:00 15:00 23:00 Intake Total 720 ml 600 ml 360 ml Balance 720 ml 600 ml 360 ml Intake Oral 720 ml 600 ml 360 ml # Voids 3 5 2 # Bowel Movements 3 0 Result Diagram: 01/31/18 0750 01/30/18 0535 Other Results Laboratory Tests Test 01/29/18 06:08 01/30/18 05:35 01/31/18 07:50 Hemoglobin 10.5 GM/DL 9.1 GM/DL 10.0 GM/DL Hematocrit 31.8 % 27.2 % 30.3 % White Blood Count 14.1 TH/MM3 11.2 TH/MM3 Red Blood Count 2.86 MIL/MM3 3.17 MIL/MM3 Mean Corpuscular Volume 95.2 FL 95.6 FL Mean Corpuscular Hemoglobin 31.6 PG 31.5 PG Mean Corpuscular Hemoglobin Concent 33.3 % 32.9 % Red Cell Distribution Width 13.0 % 13.0 % Platelet Count 198 TH/MM3 238 TH/MM3 Mean Platelet Volume 8.8 FL 8.4 FL Neutrophils (%) (Auto) 70.7 % 53.5 % Lymphocytes (%) (Auto) 18.2 % 32.3 % Monocytes (%) (Auto) 9.2 % 10.4 % Eosinophils (%) (Auto) 1.7 % 3.4 % Basophils (%) (Auto) 0.2 % 0.4 % Neutrophils # (Auto) 10.0 TH/MM3 6.0 TH/MM3 Lymphocytes # (Auto) 2.6 TH/MM3 3.6 TH/MM3 Monocytes # (Auto) 1.3 TH/MM3 1.2 TH/MM3 Eosinophils # (Auto) 0.2 TH/MM3 0.4 TH/MM3 Basophils # (Auto) 0.0 TH/MM3 0.0 TH/MM3 CBC Comment DIFF FINAL DIFF FINAL Differential Comment Blood Urea Nitrogen 26 MG/DL Creatinine 0.63 MG/DL Random Glucose 87 MG/DL Total Protein 5.4 GM/DL Albumin 2.6 GM/DL Calcium Level 8.2 MG/DL Phosphorus Level 3.3 MG/DL Magnesium Level 1.9 MG/DL Alkaline Phosphatase 51 U/L Aspartate Amino Transf (AST/SGOT) 17 U/L Alanine Aminotransferase (ALT/SGPT) 17 U/L Total Bilirubin 0.4 MG/DL Sodium Level 142 MEQ/L Potassium Level 4.1 MEQ/L Chloride Level 108 MEQ/L Carbon Dioxide Level 26.3 MEQ/L Anion Gap 8 MEQ/L Estimat Glomerular Filtration Rate 91 ML/MIN Hemoglobin A1c 5.6 % Free Thyroxine 1.47 NG/DL Thyroid Stimulating Hormone 3rd Gen 0.094 uIU/ML Imaging Last Impressions Femur X-Ray 01/28/18 0000 Signed Impressions: CONCLUSION: Excellent alignment of the patient's fracture post intramedullary marlee and troch anteric nail placement. Chest X-Ray 01/27/18 1817 Signed Impressions: CONCLUSION: Negative examination. Hip and Pelvis X-Ray 01/27/18 1721 Signed Impressions: CONCLUSION: Acute right intertrochanteric fracture as detailed above. Objective Remarks GENERAL: Awake alert and oriented 3 talkative and cooperative SKIN: Warm and dry. Right hip is dressed HEAD: Atraumatic. Normocephalic. EYES: Pupils equal and round. No scleral icterus. No injection or drainage. ENT: No nasal bleeding or discharge. Mucous membranes pink and moist. NECK: Trachea midline. No JVD. CARDIOVASCULAR: Regular rate and rhythm. S1-S2 no S3 or S4 right hip is dressed RESPIRATORY: No accessory muscle use. Clear to auscultation. Breath sounds equal bilaterally. GASTROINTESTINAL: Abdomen soft, non-tender, nondistended. Hepatic and splenic margins not palpable. MUSCULOSKELETAL: Extremities without clubbing, cyanosis, or edema. No obvious deformities. NEUROLOGICAL: Awake and alert. No obvious cranial nerve deficits. Motor grossly within normal limits. Five out of 5 muscle strength in the arms and legs. Normal speech. PSYCHIATRIC: Appropriate mood and affect; insight and judgment normal. Procedures Jan 28, 2018 Preoperative Diagnosis: Right hip intertrochanteric fracture Postoperative Diagnosis: Procedure: Right hip reduction and intramedullary fixation Anesthesia: General Surgeon: Kael Meier Technical Communicator(s): COREY Li PA-C The surgical procedure was assisted by my physician expanded duty dental assistant. My P.A. presence was necessary throughout this case for the manipulation and positioning of the surgical extremity. My P.A. was assisting me throughout the duration of this procedure. The skill set of a physician expanded duty dental assistant was medically necessary to complete this procedure. During the surgical case the surgical nurse was working at the back table and the physician expanded duty dental assistant was directly assisting me. Operation and Findings: Implants used: Biomet 11 mm x [380]mm troch nail Plan of activity: Weight-bear as tolerated Patient was seen and evaluated preoperatively. The patient has significant hip pain from proximal femur fracture. The risk and benefits of surgery were discussed in depth with the patient to include bleeding, infection, nonunion, malunion, need for hip replacement, painful hardware, as well as medical competitions including blood clots, stroke, heart attack, and . Informed consent was obtained. Operative site was marked. Patient was brought to the operating room and placed on fracture table. IV sedation was administered by anesthesiologist. Timeout procedure was performed. Hip and leg were prepped with alcohol followed by DuraPrep and draped in the usual sterile fashion. IV antibiotics were given prior to incision. Procedure began with reduction of fracture. Traction was applied. The leg was manipulated to achieve reduction. Excellent reduction was achieved. Fluoroscopy was used to confirm reduction. A three inch incision was made proximal to the trochanter. Subcutaneous tissue was dissected bluntly. Guidepin was placed at the tip of the trochanter and advanced into the femoral canal. Fluoroscopy confirmed appropriate guidepin placement. A opening reamer was placed over the guidepin. A long ball tipped guide pin was now placed down the femoral canal into the center of the distal femur. The nail length was now measured. Fluoroscopy confirmed appropriate guidepin placement. Flexible reamers were now passed over the guidepin to ream the intramedullary canal. The nail was attached to the insertion handle. Nail was now placed over the guidepin into the femoral canal. Fluoroscopy confirmed appropriate nail placement. A second incision was made over the lateral thigh. Cannulas were placed through the insertion handle down to the femur. Guidepin was now placed through the femoral nail into the center of the femoral head. Fluoroscopy confirmed appropriate guidepin placement. Screw length was measured. Cannulated drill was placed over the guidepin. Appropriate length lag screw was now placed. Traction was released and compression was applied. The set screw was now tightened in dynamic mode. Next, using perfect eagle technique 1 distal interlocking screw was placed. Screw holes were predrilled and screw lengths were measured. Final fluoroscopy revealed well aligned fracture with well-placed hardware. Incision was closed with 3-0 Vicryl and adriana. Sterile dressings were applied. Patient was awakened and transferred to recovery room. Kael Meier MD Jan 28, 2018 11:26 <Electronically signed by Kael Meier MD> 01/28/18 1126 Medications and IVs Current Medications Morphine Sulfate (Morphine Inj) 4 mg ONCE ONCE IV PUSH Last administered on at 17:52; Start 01/27/18 at 17:30; Stop 01/27/18 at 17:31; Status DC Ondansetron HCl (Zofran Odt) 4 mg ONCE ONCE PO Last administered on at 17:53; Start 01/27/18 at 17:30; Stop 01/27/18 at 17:31; Status DC Sodium Chloride (NS Flush) 2 ml UNSCH PRN IVF FLUSH AFTER USING IV ACCESS; Start 01/27/18 at 18:30; Stop 01/28/18 at 01:10; Status DC Morphine Sulfate (Morphine Inj) 4 mg Q3H PRN IV PUSH pain hip frx Last administered on 01/28/18at 06:49; Start 01/27/18 at 20:15 Sodium Chloride 1,000 ml @ 75 mls/hr [id number] IV Last administered on at 00:05; Start 01/27/18 at 20:54 Sodium Chloride (NS Flush) 2 ml UNSCH PRN IV FLUSH FLUSH AFTER USING IV ACCESS ; Start 01/27/18 at 21:00 Sodium Chloride (NS Flush) 2 ml BID IV FLUSH Last administered on 01/31/18at 09: 00; Start 01/27/18 at 21:00 Acetaminophen (Tylenol) 650 mg Q4H PRN PO TEMP > 100.4; Start 01/27/18 at 21:00 Ondansetron HCl (Zofran Odt) 4 mg Q6H PRN PO NAUSEA OR VOMITING; Start at 21:00 Naloxone HCl (Narcan Inj) 0.4 mg UNSCH PRN IV PUSH SEE LABEL COMMENTS; Start at 21:00 Senna/Docusate Sodium (Lori-Colace) 1 tab BID PO Last administered on at 08:53; Start 01/27/18 at 21:00 Magnesium Hydroxide (Milk Of Magnesia Liq) 30 ml Q12H PRN PO Mild constipation Last administered on 01/30/18at 06:41; Start 01/27/18 at 21:00 Sennosides (Senokot) 17.2 mg Q12H PRN PO Moderate constipation Last administered on 01/29/18at 20:35; Start 01/27/18 at 21:00 Bisacodyl (Dulcolax Supp) 10 mg DAILY PRN RECTAL SEVERE CONSITIPATION; Start at 21:00 Lactulose (Lactulose Liq) 30 ml DAILY PRN PO SEVERE CONSITIPATION Last administered on 01/30/18at 08:29; Start 01/27/18 at 21:00 Morphine Sulfate (Morphine Inj) 4 mg Q3H PRN IV PUSH pain 6-10; Start 01/27/18 at 21:00 Atorvastatin Calcium (Lipitor) 40 mg HS PO Last administered on 01/30/18at 21:58 ; Start 01/27/18 at 21:00 Prednisone (Deltasone) 2.5 mg DAILY PO Last administered on 01/31/18at 08:53; Start 01/28/18 at 09:00 Lactated Ringer's 1,000 ml @ 30 mls/hr Q24H PRN IV SEE LABEL COMMENTS Last administered on 01/28/18at 09:40; Start 01/28/18 at 01:15; Stop 01/31/18 at 01:14 ; Status DC Sodium Chloride 500 ml @ 30 mls/hr [id number] PRN IV SEE LABEL COMMENTS; Start at 01:15; Stop 01/31/18 at 01:14; Status DC Metoprolol Tartrate (Lopressor) 25 mg STRAIGHT EDGER PRN PO SEE LABEL COMMENTS; Start 01/28/18 at 01:15; Stop 01/31/18 at 01:14; Status DC Povidone Iodine (Betadine 5% Antisepsis Kit) 1 applic STRAIGHT EDGER PRN EACH NARE SEE LABEL COMMENTS; Start 01/28/18 at 01:15; Stop 01/31/18 at 01:14; Status DC Chlorhexidine Gluconate (Chlorhexidine 2% Cloth) 3 pack STRAIGHT EDGER PRN TOPICAL SEE LABEL COMMENTS; Start 01/28/18 at 01:15; Stop 01/31/18 at 01:14; Status DC Bupivacaine HCl/ Epinephrine Bitart (Sensorcaine-Epinephrine Pf 0.25% Inj) 10 ml STK-MED ONCE .ROUTE ; Start 01/28/18 at 09:12; Stop 01/28/18 at 09:13; Status DC Vancomycin HCl (Vancomycin Inj) 1,000 mg STK-MED ONCE .ROUTE Last administered on 01/28/18at 10:35; Start 01/28/18 at 09:12; Stop 01/28/18 at 09:13; Status DC Cefazolin Sodium (Ancef Inj) 1,000 mg STK-MED ONCE .ROUTE Last administered on 01/28/18at 10:36; Start 01/28/18 at 09:12; Stop 01/28/18 at 09:13; Status DC Gentamicin Sulfate (Gentamicin Inj) 240 mg STK-MED ONCE .ROUTE Last administered on 01/28/18at 10:55; Start 01/28/18 at 09:12; Stop 01/28/18 at 09:13 ; Status DC Sodium Chloride 250 ml @ As Directed STK-MED ONCE .ROUTE Last administered on 01/28/18at 10:35; Start 01/28/18 at 09:12; Stop 01/28/18 at 09:13; Status DC Acetaminophen 100 ml @ As Directed STK-MED ONCE IV ; Start 01/28/18 at 10:15; Stop 01/28/18 at 10:16; Status DC Methylprednisolone Sodium Succinate (SoluMEDROL INJ) 125 mg STK-MED ONCE .ROUTE ; Start 01/28/18 at 10:16; Stop 01/28/18 at 10:17; Status DC Enoxaparin Sodium (Lovenox Inj) 30 mg Q24H SQ Last administered on 01/31/18at 08 :53; Start 01/29/18 at 10:30 Cefazolin Sodium 1000 mg/Sodium Chloride 100 ml @ 200 mls/hr Q8H IV Last administered on 01/29/18at 10:40; Start 01/28/18 at 18:00; Stop 01/29/18 at 10:29 ; Status DC Calcium/Vitamin D (Oscal-D 250-125) 250 mg TID PO Last administered on at 08:53; Start 01/28/18 at 13:00 Diphenhydramine HCl (Benadryl) 25 mg Q6H PRN PO ITCHING; Start 01/28/18 at 11: 30 Acetaminophen/ Hydrocodone Bitart ([place] 7.5-325 Mg) 1 tab Q3H PRN PO pain 3< 10 Last administered on 01/31/18at 08:53; Start 01/28/18 at 11:30 Morphine Sulfate (Morphine Inj) 3 mg Q3H PRN IV PUSH break thru pain; Start at 11:30 Cholecalciferol (Vitamin D3) 5,000 units DAILY PO Last administered on at 08:53; Start 01/29/18 at 09:00 Ergocalciferol (Drisdol) 50,000 units ONCE ONCE PO Last administered on at 16:07; Start 01/28/18 at 13:30; Stop 01/28/18 at 13:31; Status DC Fentanyl Citrate (fentaNYL INJ) 200 mcg STK-MED ONCE .ROUTE ; Start 01/28/18 at 11:45; Stop 01/28/18 at 11:46; Status DC Miscellaneous Information ([facility] [place] [facility]) ALL NURSING DEPARTME... UNSCH PRN .XX SEE LABEL COMMENTS; Start 01/28/18 at 11:37; Stop 01/29/18 at 11: 36; Status DC Ceftriaxone Sodium 1000 mg/ Sodium Chloride 100 ml @ 200 mls/hr Q24H IV Last administered on 01/30/18at 13:12; Start 01/30/18 at 12:00 A/P Problem List: (1) GERD (gastroesophageal reflux disease) ICD Code: K21.9 - Gastro-esophageal reflux disease without esophagitis (2) Intertrochanteric fracture of right hip ICD Code: S72.141A - Displaced intertrochanteric fracture of right femur, initial encounter for closed fracture Status: Acute (3) UTI (urinary tract infection) ICD Code: N39.0 - Urinary tract infection, site not specified Status: Acute Assessment and Plan 82-year-old female with a history of CAD, hyperlipidemia, rheumatoid arthritis and GERD presented to the ED with complaints of right hip pain. 1. Hip Fracture, right Hip x ray revealed a right intertrochanteric fracture For surgical intervention with Dr. Meier status post hip surgery on January 28 -Pain management with IV Morphine 2. Hyperlipidemia, chronic -Resume home medications statin 3. Rheumatoid arthritis -Resume home prednisone 4. DVT prophylaxis: SCDs on nonaffected leg, start anticoagulation per orthopedics after surgery 5. UTI - E.COLI START ROCEPHIN- CAN SWITCH TO CEFTIN AT DC PT and OT to eval and treat SWITCH TO CEFTIN AT DC DC TO SNF Discharge Planning Family states they want to take her to [facility] as well as the patient Problem Qualifiers (1) Intertrochanteric fracture of right hip: Qualified Codes: S72.141A - Displaced intertrochanteric fracture of right femur , initial encounter for closed fracture Bryan Cardenas DO Jan 31, 2018 10:39
[2018-01-31] MEDS ORDERED: PRED2.5T PO (10:46)
[2018-01-31] MEDS ORDERED: ONDA4TAB7 PO (10:46)
[2018-01-31] MEDS ORDERED: ASPI-516 CHEW (10:46)
[2018-01-31] MEDS ORDERED: FISHCAP4 PO (10:46)
[2018-01-31] MEDS ORDERED: PERI PO (10:46)
[2018-01-31] MEDS ORDERED: CEFU1TAB18 PO (10:46)
[2018-01-31] MEDS ORDERED: ATOR40TA16 PO (10:46)
[2018-01-31] MEDS ORDERED: FAMO1TAB37 PO (10:46)
--- NOTE | 2018-01-31 10:47 | HHI.DS ---
Discharge Summary Admission Date Jan 27, 2018 at 20:28 Discharge Date: Jan 31, 2018 Admitting Diagnosis hip fracture (1) GERD (gastroesophageal reflux disease) ICD Code: K21.9 - Gastro-esophageal reflux disease without esophagitis (2) Intertrochanteric fracture of right hip ICD Code: S72.141A - Displaced intertrochanteric fracture of right femur, initial encounter for closed fracture Diagnosis: Principal Status: Acute (3) UTI (urinary tract infection) ICD Code: N39.0 - Urinary tract infection, site not specified Diagnosis: Principal Status: Acute Procedures Jan 28, 2018 Preoperative Diagnosis: Right hip intertrochanteric fracture Postoperative Diagnosis: Procedure: Right hip reduction and intramedullary fixation Anesthesia: General Surgeon: Kael Meier Sports Physiologist(s): COREY Li PA-C The surgical procedure was assisted by my physician occupational therapist's assistant. My P.A. presence was necessary throughout this case for the manipulation and positioning of the surgical extremity. My P.A. was assisting me throughout the duration of this procedure. The skill set of a physician occupational therapist's assistant was medically necessary to complete this procedure. During the surgical case the assembler surgical garment was working at the back table and the physician occupational therapist's assistant was directly assisting me. Operation and Findings: Implants used: Biomet 11 mm x [380]mm troch nail Plan of activity: Weight-bear as tolerated Patient was seen and evaluated preoperatively. The patient has significant hip pain from proximal femur fracture. The risk and benefits of surgery were discussed in depth with the patient to include bleeding, infection, nonunion, malunion, need for hip replacement, painful hardware, as well as medical competitions including blood clots, stroke, heart attack, and . Informed consent was obtained. Operative site was marked. Patient was brought to the operating room and placed on fracture table. IV sedation was administered by anesthesiologist. Timeout procedure was performed. Hip and leg were prepped with alcohol followed by DuraPrep and draped in the usual sterile fashion. IV antibiotics were given prior to incision. Procedure began with reduction of fracture. Traction was applied. The leg was manipulated to achieve reduction. Excellent reduction was achieved. Fluoroscopy was used to confirm reduction. A three inch incision was made proximal to the trochanter. Subcutaneous tissue was dissected bluntly. Guidepin was placed at the tip of the trochanter and advanced into the femoral canal. Fluoroscopy confirmed appropriate guidepin placement. A opening reamer was placed over the guidepin. A long ball tipped guide pin was now placed down the femoral canal into the center of the distal femur. The nail length was now measured. Fluoroscopy confirmed appropriate guidepin placement. Flexible reamers were now passed over the guidepin to ream the intramedullary canal. The nail was attached to the insertion handle. Nail was now placed over the guidepin into the femoral canal. Fluoroscopy confirmed appropriate nail placement. A second incision was made over the lateral thigh. Cannulas were placed through the insertion handle down to the femur. Guidepin was now placed through the femoral nail into the center of the femoral head. Fluoroscopy confirmed appropriate guidepin placement. Screw length was measured. Cannulated drill was placed over the guidepin. Appropriate length lag screw was now placed. Traction was released and compression was applied. The set screw was now tightened in dynamic mode. Next, using perfect [place] technique 1 distal interlocking screw was placed. Screw holes were predrilled and screw lengths were measured. Final fluoroscopy revealed well aligned fracture with well-placed hardware. Incision was closed with 3-0 Vicryl and adriana. Sterile dressings were applied. Patient was awakened and transferred to recovery room. Kael Meier MD Jan 28, 2018 11:26 <Electronically signed by Kael Meier MD> 01/28/18 1126 Brief History - From Admission 82-year-old female with a history of CAD, hyperlipidemia, rheumatoid arthritis and GERD presented to the ED with complaints of right hip pain. Patient states she was running through the rain to catch the soccer game on TV when she came across some steps slipped going up the stairs. She states she really landed on her right hip, denies hitting her head or any LOC. She states the pain is a throbbing, constant, 8/10 to the right hip with no radiation or associated symptoms. She denies any chest pain, shortness of breath, fevers or chills. CBC/BMP: 01/31/18 0750 01/30/18 0535 Significant Findings Laboratory Tests Test 01/29/18 06:08 01/30/18 05:35 01/31/18 07:50 Hemoglobin 10.5 GM/DL (11.6-15.3) 9.1 GM/DL (11.6-15.3) 10.0 GM/DL (11.6-15.3) Hematocrit 31.8 % (35.0-46.0) 27.2 % (35.0-46.0) 30.3 % (35.0-46.0) White Blood Count 14.1 TH/MM3 (4.0-11.0) 11.2 TH/MM3 (4.0-11.0) Red Blood Count 2.86 MIL/MM3 (4.00-5.30) 3.17 MIL/MM3 (4.00-5.30) Neutrophils (%) (Auto) 70.7 % (16.0-70.0) Monocytes (%) (Auto) 9.2 % (0.0-8.0) 10.4 % (0.0-8.0) Neutrophils # (Auto) 10.0 TH/MM3 (1.8-7.7) Monocytes # (Auto) 1.3 TH/MM3 (0-0.9) 1.2 TH/MM3 (0-0.9) Blood Urea Nitrogen 26 MG/DL (7-18) Total Protein 5.4 GM/DL (6.4-8.2) Albumin 2.6 GM/DL (3.4-5.0) Calcium Level 8.2 MG/DL (8.5-10.1) Chloride Level 108 MEQ/L (98-107) Free Thyroxine 1.47 NG/DL (0.76-1.46) Thyroid Stimulating Hormone 3rd Gen 0.094 uIU/ML (0.358-3.740) Imaging Last Impressions Femur X-Ray 01/28/18 0000 Signed Impressions: CONCLUSION: Excellent alignment of the patient's fracture post intramedullary marlee and troch anteric nail placement. Chest X-Ray 01/27/18 1817 Signed Impressions: CONCLUSION: Negative examination. Hip and Pelvis X-Ray 01/27/18 1721 Signed Impressions: CONCLUSION: Acute right intertrochanteric fracture as detailed above. PE at Discharge GENERAL: Awake alert and oriented 3 talkative and cooperative SKIN: Warm and dry. Right hip is dressed HEAD: Atraumatic. Normocephalic. EYES: Pupils equal and round. No scleral icterus. No injection or drainage. ENT: No nasal bleeding or discharge. Mucous membranes pink and moist. NECK: Trachea midline. No JVD. CARDIOVASCULAR: Regular rate and rhythm. S1-S2 no S3 or S4 right hip is dressed RESPIRATORY: No accessory muscle use. Clear to auscultation. Breath sounds equal bilaterally. GASTROINTESTINAL: Abdomen soft, non-tender, nondistended. Hepatic and splenic margins not palpable. MUSCULOSKELETAL: Extremities without clubbing, cyanosis, or edema. No obvious deformities. NEUROLOGICAL: Awake and alert. No obvious cranial nerve deficits. Motor grossly within normal limits. Five out of 5 muscle strength in the arms and legs. Normal speech. PSYCHIATRIC: Appropriate mood and affect; insight and judgment normal. Hospital Course 82-year-old female with a history of CAD, hyperlipidemia, rheumatoid arthritis and GERD presented to the ED with complaints of right hip pain. Patient states she was running through the rain to catch the soccer game on TV when she came across some steps slipped going up the stairs. She states she really landed on her right hip, denies hitting her head or any LOC. She states the pain is a throbbing, constant, 8/10 to the right hip with no radiation or associated symptoms. She denies any chest pain, shortness of breath, fevers or chills. 01-28 Patient complaint of right hip pain. Ready for surgery today. 01-29 HAD SURGERY ON RIGHT HIP YESTERDAY 01-28 PAIN CONTROL PT AND OT STATES SHE WANTS TO GO TO [facility] RN AND PT AND FAMILY AND CASE MANAGEMENT AM LABS 01-30 NO NEW COMPLAINTS HAS SOME RIGHT HIP PAIN AMBULATING BETTER GOING TO [facility] RN AND PT AM LABS DC TO [facility] IN NEXT 24 TO 48 HOURS 01-31 CLEARED BY ORTHO FOR DC FAMILY CAN TRANSPORT TO [facility]- SNF IN [place] RN AND PT AND CM DC TO SNF TODAY Pt Condition on Discharge: Good Discharge Disposition: Discharge to SNF Discharge Time: > 30 minutes Discharge Instructions DIET: Follow Instructions for: Heart Healthy Diet Speech Therapy-Diet Recommends: Regular Activities you can perform: Weight Bearing as Sharyn Follow up Referrals: Orthopedics - 2 Weeks @ [facility] with Kael Meier MD PCP Follow-up - 2-3 Days New Medications: Calcium Carbonate-Vitamin D (Calcium 600+D 200) 600-200 Mg-Unit Tab 1 TAB PO BID for Nutritional Supplement, #90 TAB 0 Refills Cefuroxime (Ceftin) 250 Mg Tab 250 MG PO BID for Infection, #20 TAB Ergocalciferol (Ergocalciferol) 50,000 Unit Cap 96784 UNITS PO Q7D for Nutritional Supplement, #8 CAP Famotidine (Pepcid) 20 Mg Tab 20 MG PO BID for Manage Heartburn, #60 TAB 0 Refills Hydrocodone-Acetaminophen (Hydrocodone-Acetaminophen) 7.5 Mg-325 Mg Tab 1 TAB PO Q4H PRN for PAIN, #50 TAB 0 Refills Rivaroxaban (Xarelto) 10 Mg Tab 10 MG PO DAILY for Blood Clot Prevention, #14 TAB 0 Refills Walker with Front Wheels (Walker with Front Wheels) 1 Mis Mis EA .XX DIRECTED, #1 0 Refills Ondansetron Odt (Ondansetron Odt) 4 Mg Tab 4 MG PO Q6H PRN for NAUSEA OR VOMITING, #30 TAB Sennosides-Docusate Sodium (Gnp Senna Plus 8.6-50 mg) 8.6 Mg-50 Mg Tab 2 TAB PO BID for Bowel Management, #120 TAB Continued Medications: Aspirin (Aspirin) 81 Mg Chew 81 MG CHEW DAILY for Blood Clot Prevention, #30 TAB 0 Refills (This prescription has been renewed) Atorvastatin (Atorvastatin) 40 Mg Tab 40 MG PO DAILY for Cholesterol Management, #30 TAB 0 Refills (This prescription has been renewed) Fish Oil-Cholecalciferol (Fish Oil + D3) 1,200-1,000 Mg-Unit Cap 1 CAP PO DAILY for Nutritional Supplement, #30 CAP 0 Refills (This prescription has been renewed) Prednisone (Prednisone) 2.5 Mg Tab 2.5 MG PO DAILY for Inflammation, #30 TAB 0 Refills (This prescription has been renewed) Discontinued Medications: Calcium Carbonate-Cholecalciferol (Calcium 600 with Vitamin D) 600-400 mg-Unit Tab 1 TAB PO DAILY for Calcium Supplement, TAB 0 Refills Bryan Cardenas DO Jan 31, 2018 10:47
[2018-01-31 10:49] LABS: ALBUMIN 2.9 GM/DL (3.4-5.0); AST (GOT) 26 U/L (15-37); BICARBONATE 27.8 MEQ/L (21.0-32.0); BLOOD UREA NITROGEN 20 MG/DL (7-18); CALCIUM 8.4 MG/DL (8.5-10.1); CHLORIDE 104 MEQ/L (98-107); CREATININE 0.61 MG/DL (0.50-1.00); GLOMERULAR FILTRATION RATE 94 ML/MIN (>89); SODIUM (NA) 140 MEQ/L (136-145)
[2018-01-31 10:51] LABS: GLUCOSE,RANDOM 71 MG/DL (74-106)
[2018-01-31 10:58] LABS: ALKALINE PHOSPHATASE 56 U/L (45-117); ALT (GPT) 17 U/L (10-53); PHOSPHORUS 2.9 MG/DL (2.5-4.9); TOTAL BILIRUBIN ADULT 0.7 MG/DL (0.2-1.0); TOTAL PROTEIN 6.2 GM/DL (6.4-8.2)
[2018-01-31 12:00] VITALS: BP 98/47; PULSE 80; RESP 17; TEMP 98.1; O2SAT 95
[2018-01-31] MEDS: cefTRIAXone INJ 1,000 MG in SODIUM CHLORIDE 0.9% INJ 100 ML IV SCH (12:00)
[2018-01-31 16:44] VITALS: BP 121/57; PULSE 82; RESP 18; TEMP 98.4; O2SAT 94
[2018-01-31] MEDS: SODIUM CHLOR 0.9% 1000 ML INJ 1,000 ML IV SCH ×2 (18:14→23:07)
[2018-01-31 20:00] VITALS: BP 118/61; PULSE 81; RESP 17; TEMP 98.6; O2SAT 93
[2018-01-31] MEDS: ATORVASTATIN 40 MG TAB PO SCH (20:45)
[2018-02-01] VITALS: BP 150/66; PULSE 70; RESP 18; TEMP 97.2; O2SAT 96
[2018-02-01] MEDS: ACETAMINOPHEN/HYDROcodone 325 MG/7.5 MG TAB PO PRN ×5 (00:24→16:16)
[2018-02-01 04:00] VITALS: BP 131/62; PULSE 70; RESP 18; TEMP 98.1; O2SAT 96
--- NOTE | 2018-02-01 06:57 | PD.ORT.PN ---
Subjective Subjective Remarks Pain controlled resting comfortably Objective Vitals Vital Signs Date Time Temp Pulse Resp B/P (MAP) Pulse Ox O2 Delivery O2 Flow Rate FiO2 02/01/18 04:00 98.1 70 18 131/62 (85) 96 02/01/18 00:00 97.2 70 18 150/66 (94) 96 01/31/18 20:00 98.6 81 17 118/61 (80) 93 01/31/18 16:44 98.4 82 18 121/57 (78) 94 01/31/18 12:00 98.1 80 17 98/47 (64) 95 01/31/18 08:00 98.3 76 18 151/74 (99) 92 I/O 01/31/18 01/31/18 01/31/18 02/01/18 02/01/18 02/01/18 07:00 15:00 23:00 07:00 15:00 23:00 Intake Total 360 ml 960 ml 440 ml Balance 360 ml 960 ml 440 ml Intake Oral 360 ml 960 ml 240 ml IV Total 200 ml # Voids 2 4 5 # Bowel Movements 0 Result Diagram: 01/31/18 0750 01/31/18 0750 Imaging Last 24 hours Impressions Chest X-Ray 01/27/18 1817 Signed Impressions: CONCLUSION: Negative examination. Hip and Pelvis X-Ray 01/27/18 1721 Signed Impressions: CONCLUSION: Acute right intertrochanteric fracture as detailed above. Objective Remarks Dressings are C/D/I. EHL/TA/G intact. 2+ pedal pulse. Calf is soft and nontender. SILT distally. Assessment & Plan Assessment and Plan POD #4: Right hip IMN for intertrochanteric hip fracture 1. WBAT RLE 2. Xarelto for DVT prophylaxis 3. Ice to the right hip PRN 4. Anticipatory discharge to SNF in [place] when bed arranged 5. Patient will need to arrange f/u with ortho in [place] 6. Daily dressing changes Xeroform and Primapore Presley Iqbal Jr. Feb 01, 2018 06:57
[2018-02-01 08:00] VITALS: BP 134/59; PULSE 82; RESP 18; TEMP 97.7; O2SAT 90
[2018-02-01] MEDS: SODIUM CHLORIDE 0.9% FLUSH 10 ML FLUSH IV FLUSH SCH (09:00)
[2018-02-01] MEDS: DOCUSATE SODIUM 50 MG/SENNA 8.6 MG TAB PO SCH (09:02)
[2018-02-01] MEDS: CALCIUM/VITAMIN D 250 MG/125 U TAB PO SCH ×2 (09:02→13:06)
[2018-02-01] MEDS: CHOLECALCIFEROL (VIT D3) 5000 UNIT CAP PO SCH (09:02)
[2018-02-01] MEDS: predniSONE 5 MG TAB PO SCH (09:02)
[2018-02-01] MEDS: ENOXAPARIN SODIUM 30 MG/0.3 ML SYRINGE SQ SCH (09:03)
--- NOTE | 2018-02-01 10:39 | HHI.PR ---
Subjective Remarks Follow-up visit HLD, RA, GERD, status post right hip arthroplasty. Patient seen and examined today. Reports she is doing okay. She is able to ambulate slowly using walker. States he is just waiting for her placement in a senior care facility in [facility]. Denies pain and discomfort. Denies SOB/ dyspnea. Denies chest pain, palpitations, headaches, dizziness. Denies fevers, chills, n/v/d. Denies dysuria. Objective Vitals Vital Signs Date Time Temp Pulse Resp B/P (MAP) Pulse Ox O2 Delivery O2 Flow Rate FiO2 02/01/18 08:00 97.7 82 18 134/59 (84) 90 02/01/18 04:00 98.1 70 18 131/62 (85) 96 02/01/18 00:00 97.2 70 18 150/66 (94) 96 01/31/18 20:00 98.6 81 17 118/61 (80) 93 01/31/18 16:44 98.4 82 18 121/57 (78) 94 01/31/18 12:00 98.1 80 17 98/47 (64) 95 I/O 01/31/18 01/31/18 01/31/18 02/01/18 02/01/18 02/01/18 07:00 15:00 23:00 07:00 15:00 23:00 Intake Total 360 ml 960 ml 440 ml Balance 360 ml 960 ml 440 ml Intake Oral 360 ml 960 ml 240 ml IV Total 200 ml # Voids 2 4 5 # Bowel Movements 0 Result Diagram: 01/31/18 0750 01/31/18 0750 Imaging Last Impressions Femur X-Ray 01/28/18 0000 Signed Impressions: CONCLUSION: Excellent alignment of the patient's fracture post intramedullary marlee and troch anteric nail placement. Chest X-Ray 01/27/18 1817 Signed Impressions: CONCLUSION: Negative examination. Hip and Pelvis X-Ray 01/27/18 1721 Signed Impressions: CONCLUSION: Acute right intertrochanteric fracture as detailed above. Objective Remarks GENERAL: This is a well-nourished, well-developed patient, in no apparent distress. SKIN: Warm and dry. HEENT: Normocephalic. Pupils equal round and reactive. Nose without bleeding. Airway patent. NECK: Trachea midline. No JVD. Supple. CARDIOVASCULAR: Regular rate and rhythm without murmurs, gallops, or rubs. RESPIRATORY: Clear to auscultation. Breath sounds equal bilaterally. No wheezes , rales, or rhonchi. GASTROINTESTINAL: Abdomen soft, non-tender, nondistended. Bowel Sounds normoactive x4. MUSCULOSKELETAL: Extremities without clubbing, cyanosis. Right hip trace edema NEUROLOGICAL: Awake and alert. Oriented to time, place, person. No focal neuro deficit. Moves all extremities. Normal speech. Procedures Jan 28, 2018 Preoperative Diagnosis: Right hip intertrochanteric fracture Postoperative Diagnosis: Procedure: Right hip reduction and intramedullary fixation Anesthesia: General Surgeon: Kael Meier Front End Java Developer(s): COREY Li PA-C The surgical procedure was assisted by my physician security assistant. My P.A. presence was necessary throughout this case for the manipulation and positioning of the surgical extremity. My P.A. was assisting me throughout the duration of this procedure. The skill set of a physician security assistant was medically necessary to complete this procedure. During the surgical case the fitness technician was working at the back table and the physician security assistant was directly assisting me. Operation and Findings: Implants used: Biomet 11 mm x [380]mm troch nail Plan of activity: Weight-bear as tolerated Patient was seen and evaluated preoperatively. The patient has significant hip pain from proximal femur fracture. The risk and benefits of surgery were discussed in depth with the patient to include bleeding, infection, nonunion, malunion, need for hip replacement, painful hardware, as well as medical competitions including blood clots, stroke, heart attack, and . Informed consent was obtained. Operative site was marked. Patient was brought to the operating room and placed on fracture table. IV sedation was administered by anesthesiologist. Timeout procedure was performed. Hip and leg were prepped with alcohol followed by DuraPrep and draped in the usual sterile fashion. IV antibiotics were given prior to incision. Procedure began with reduction of fracture. Traction was applied. The leg was manipulated to achieve reduction. Excellent reduction was achieved. Fluoroscopy was used to confirm reduction. A three inch incision was made proximal to the trochanter. Subcutaneous tissue was dissected bluntly. Guidepin was placed at the tip of the trochanter and advanced into the femoral canal. Fluoroscopy confirmed appropriate guidepin placement. A opening reamer was placed over the guidepin. A long ball tipped guide pin was now placed down the femoral canal into the center of the distal femur. The nail length was now measured. Fluoroscopy confirmed appropriate guidepin placement. Flexible reamers were now passed over the guidepin to ream the intramedullary canal. The nail was attached to the insertion handle. Nail was now placed over the guidepin into the femoral canal. Fluoroscopy confirmed appropriate nail placement. A second incision was made over the lateral thigh. Cannulas were placed through the insertion handle down to the femur. Guidepin was now placed through the femoral nail into the center of the femoral head. Fluoroscopy confirmed appropriate guidepin placement. Screw length was measured. Cannulated drill was placed over the guidepin. Appropriate length lag screw was now placed. Traction was released and compression was applied. The set screw was now tightened in dynamic mode. Next, using perfect [place] technique 1 distal interlocking screw was placed. Screw holes were predrilled and screw lengths were measured. Final fluoroscopy revealed well aligned fracture with well-placed hardware. Incision was closed with 3-0 Vicryl and adriana. Sterile dressings were applied. Patient was awakened and transferred to recovery room. Kael Meier MD Jan 28, 2018 11:26 <Electronically signed by Kael Meier MD> 01/28/18 1126 A/P Problem List: (1) GERD (gastroesophageal reflux disease) ICD Code: K21.9 - Gastro-esophageal reflux disease without esophagitis (2) Intertrochanteric fracture of right hip ICD Code: S72.141A - Displaced intertrochanteric fracture of right femur, initial encounter for closed fracture Status: Acute (3) UTI (urinary tract infection) ICD Code: N39.0 - Urinary tract infection, site not specified Status: Acute Assessment and Plan 82-year-old female with a history of CAD, hyperlipidemia, rheumatoid arthritis and GERD presented to the ED with complaints of right hip pain. Patient states she was running through the rain to catch the soccer game on TV when she came across some steps slipped going up the stairs. Hip Fracture, right Hip x ray revealed a right intertrochanteric fracture status post hip surgery on January 28, by Dr. Meier -Pain management with bowel regimen -Physical therapy eval and treat Hyperlipidemia, chronic -Resume home medications statin Rheumatoid arthritis -Resume home prednisone Urinary tract infection -Patient was getting Rocephin at the hospital. -Switch over to Ceftin on discharge DVT prophylaxis: SCDs on nonaffected leg, start anticoagulation per orthopedics after surgery Discharge Planning Plan to DC to SNF. Problem Qualifiers (1) Intertrochanteric fracture of right hip: Qualified Codes: S72.141A - Displaced intertrochanteric fracture of right femur , initial encounter for closed fracture Nir Rawls Feb 01, 2018 10:39 am
[2018-02-01] MEDS: cefTRIAXone INJ 1,000 MG in SODIUM CHLORIDE 0.9% INJ 100 ML IV SCH (12:00)
[2018-02-01] MEDS: MAGNESIUM HYDROXIDE SUSP 30 ML CUP PO PRN (13:06)
[2018-02-01 16:00] VITALS: BP 107/55; PULSE 87; RESP 18; TEMP 97.5; O2SAT 94
[2018-02-01] MEDS: MORPHINE SULFATE 4 MG/ML INJ IV PUSH PRN (16:06)
== END 2018-02-01 17:51 | DRG 481 ==
LOC: NEPE 15:32 → NEDA 20:28 → N06B 21:17
PROVIDERS: ADMIT Family Medicine; ATTEND Family Medicine
PROC: 0QS606Z Reposition Right Upper Femur with Intramedullary Internal Fixation Device, Open Approach (ICD-10-PCS; principal; 2018-01-28 10:21)
DX: S72.141A Displaced intertrochanteric fracture of right femur, initial encounter for closed fracture (principal); N39.0 Urinary tract infection, site not specified; M06.9 Rheumatoid arthritis, unspecified; E78.5 Hyperlipidemia, unspecified; I25.10 Atherosclerotic heart disease of native coronary artery without angina pectoris; K21.9 Gastro-esophageal reflux disease without esophagitis; B96.20 Unspecified Escherichia coli [E. coli] as the cause of diseases classified elsewhere; M81.0 Age-related osteoporosis without current pathological fracture; W01.0XXA Fall on same level from slipping, tripping and stumbling without subsequent striking against object, initial encounter; Z87.891 Personal history of nicotine dependence; Z91.013 Allergy to seafood; Z95.1 Presence of aortocoronary bypass graft
CPT/HCPCS: 51702; 71045; 73502; 73552; 76000; 80048; 80053; 81001; 82306; 83036; 83735; 84100; 84439; 84443; 85014; 85018; 85025; 85610; 85730; 86850; 86900; 86901; 86920; 87077; 87086; 87186; 93005; 96374; C1713; J0131; J0690; J0696; J1100; J1580; J1650; J2270; J2405; J2930; J3010; J3370; J7030; J7050; J7120; J7512